=== PATIENT | female | born 1930 | race Hispanic/Latino ===

== ENCOUNTER 2017-10-02 06:26 | Emergency (ER) | payer MEDICARE, OTHER ==
[2017-10-02 06:26] VITALS: BMI 24.6
--- NOTE | 2017-10-02 07:20 | ED PDOC ---
Arrival/HPI - General Chief Complaint: Lower Extremity Problem/Injury Time Seen by Provider: 10/02/17 07:15 Historian: Patient - History of Present Illness Narrative History of Present Illness (Text): 10/02/17 07:10 Mer Cotto is an 87 year old female, whose past medical history includes hypertension and arthritis, who presents to the emergency department accompanied by family, complaining of left sided hip pain s/p mechanical fall prior to arrival. Patient reports as she was going up her driving she slipped landing on her left side. She was able to get up and ambulate again, but then fell again. Patient did not hit her head or lose consciousness. Patient denies nausea, vomiting, vision changes, headache, chest pain, shortness of breath or other complaints. Additionally, patient notes taking 2 Advil's this morning for her arthritis. PMD: Dr. Mann Time/Duration: Prior to Arrival Symptom Onset: Sudden Symptom Course: Unchanged Activities at Onset: Light Context: Walking, Street, Slipped Past Medical History - Provider Review Nursing Documentation Reviewed: Yes - Infectious Disease Hx of Infectious Diseases: None - Tetanus Immunization Tetanus Immunization: Unknown - Cardiac Hx Hypertension: Yes - Pulmonary Hx Respiratory Disorders: No - Neurological Hx Neurological Disorder: No - HEENT Other/Comment: bilat hearing aid - Endocrine/Metabolic Hx Endocrine Disorders: No - Hematological/Oncological Hx Blood Disorders: No - Integumentary Hx Dermatological Disorder: No - Musculoskeletal/Rheumatological Hx Arthritis: Yes - Gastrointestinal Hx Gastrointestinal Disorders: No - Genitourinary/Gynecological Hx Reproductive Disorders: No - Psychiatric Hx Depression: No Hx Emotional Abuse: No Hx Physical Abuse: No Hx Substance Use: No - Surgical History Hx Cholecystectomy: Yes Hx Hysterectomy: Yes - Anesthesia Hx Anesthesia Reactions: No Hx Malignant Hyperthermia: No - Suicidal Assessment Feels Threatened In Home Enviroment: No Family/Social History - Physician Review Nursing Documentation Reviewed: Yes Family/Social History: Unknown Family HX Smoking Status: Never Smoked Hx Alcohol Use: No Hx Substance Use: No Hx Substance Use Treatment: No Allergies/Home Meds Allergies/Adverse Reactions: Allergies nifedipine Allergy (Verified 10/02/17 07:17) DIZZINESS nitrofurantoin Allergy (Verified 10/02/17 07:17) RASH Home Medications: Home Meds Medication Instructions Recorded Confirmed No Known Home Med 10/02/17 10/02/17 Review of Systems - Review of Systems Constitutional: absent: Fevers Eyes: absent: Vision Changes Respiratory: absent: SOB Cardiovascular: absent: Chest Pain Gastrointestinal: absent: Nausea, Vomiting Genitourinary Female: absent: Dysuria Musculoskeletal: Other (left sided hip pain ). absent: Back Pain Neurological: absent: Headache, Dizziness Hemo/Lymphatic: absent: Easy Bleeding Physical Exam Vital Signs Reviewed: Yes Vital Signs Temp Pulse Resp BP Pulse Ox 10/02/17 09:36 97.8 F 82 19 165/86 H 100 10/02/17 06:44 97.6 F 68 16 170/90 H 99 10/02/17 06:26 97.6 F 80 19 160/86 H 100 Temperature: Afebrile Blood Pressure: Hypertensive Pulse: Regular Respiratory Rate: Normal Appearance: Positive for: Well-Appearing, Non-Toxic, Comfortable Pain Distress: None Mental Status: Positive for: Alert and Oriented X 3 - Systems Exam Head: Present: Atraumatic, Normocephalic Pupils: Present: PERRL Extroacular Muscles: Present: EOMI Conjunctiva: Present: Normal Neck: Present: Normal Range of Motion Respiratory/Chest: Present: Clear to Auscultation, Good Air Exchange. No: Respiratory Distress, Accessory Muscle Use, Wheezes, Rales, Rhonchi Cardiovascular: Present: Regular Rate and Rhythm, Normal S1, S2. No: Murmurs Upper Extremity: Present: Normal Inspection, Normal ROM, NORMAL PULSES, Neurovascularly Intact. No: Cyanosis, Edema, Tenderness, Swelling Lower Extremity: Present: Normal Inspection, NORMAL PULSES, Normal ROM, Neurovascularly Intact, Capillary Refill < 2 s, Other ((-) no hip tenderness). No: Edema, Tenderness, Swelling, Erythema, Deformity Neurological: Present: GCS=15, CN II-XII Intact, Speech Normal Skin: Present: Warm, Dry, Normal Color. No: Rashes Psychiatric: Present: Alert, Oriented x 3, Normal Insight, Normal Concentration Medical Decision Making ED Course and Treatment: 10/02/17 Impression: 87 year old female with left sided hip pain. No tenderness on exam and NROM. Differential Diagnosis included but are not limited to: sprain vs. fracture Plan: -- Left Hip x-ray -- Reassess and disposition Progress Notes: 10/02/17 09:15 Left Hip x-ray: Creator : Herb Hawkins MD FINDINGS: BONES: Normal. No fracture. JOINTS: Normal. SOFT TISSUES: Normal. OTHER FINDINGS: None. IMPRESSION: No evidence of fracture - RAD Interpretation Radiology Orders: 10/02/17 07:21 Hip Left [HIP MIN 2V W/ PELVIS LT] [RAD] Stat Statistics Teacher: Radiologist - Scribe Statement The provider has reviewed the documentation as recorded by the Scribe Heena Latrice Provider Scribe Attestation: All medical record entries made by the Scribe were at my direction and personally dictated by me. I have reviewed the chart and agree that the record accurately reflects my personal performance of the history, physical exam, medical decision making, and the department course for this patient. I have also personally directed, reviewed, and agree with the discharge instructions and disposition. Disposition/Present on Arrival - Present on Arrival Any Indicators Present on Arrival: No History of DVT/PE: No History of Uncontrolled Diabetes: No Urinary Catheter: No History of Decub. Ulcer: No History Surgical Site Infection Following: None - Disposition Have Diagnosis and Disposition been Completed?: Yes Diagnosis: Contusion, hip Disposition: HOME/ ROUTINE Disposition Time: 08:00 Condition: GOOD Discharge Instructions (ExitCare): RICE Therapy (ED), Hip Contusion (ED) Additional Instructions: Thank you for letting us take care of you today. The emergency medical care you received today was directed at your acute symptoms. If you were prescribed any medication, please fill it and take as directed. It may take several days for your symptoms to resolve. Return to the Emergency Department if your symptoms worsen, do not improve, or if you have any other problems. Please contact your doctor or call one of the physicians/clinics you have been referred to that are listed on the Patient Visit Information form that is included in your discharge packet. Bring any paperwork you were given at discharge with you along with any medications you are taking to your follow up visit. Our treatment cannot replace ongoing medical care by a primary care provider (PCP) outside of the emergency department. Thank you for allowing the [facility] team to be part of your care today. Follow up with your doctor in 3-4 days for re-evaluation and further management. Referrals: Jay Flowers MD [Primary Care Provider] - Follow up with primary Forms: [employer] ([place])
--- NOTE | 2017-10-02 09:13 | RAD ---
PROCEDURE: Left Hip and pelvis X-ray Radiographs. HISTORY: s/p fall r/o fx COMPARISON: None. FINDINGS: BONES: Normal. No fracture. JOINTS: Normal. SOFT TISSUES: Normal. OTHER FINDINGS: None. IMPRESSION: No evidence of fracture
[2017-10-02 09:37] VITALS: BP 165/86; PULSE 82; RESP 19; TEMP 97.8; O2SAT 100
== END 2017-10-02 09:36 | disposition home or self-care (01) ==
LOC: ED 06:26
DX: S70.02XA Contusion of left hip, initial encounter (principal); W01.0XXA Fall on same level from slipping, tripping and stumbling without subsequent striking against object, initial encounter; Y92.89 Other specified places as the place of occurrence of the external cause

== ENCOUNTER 2017-10-23 07:06 | Inpatient (IN) | payer MEDICARE, OTHER ==
[2017-10-23 07:18] VITALS: BMI 24.7
--- NOTE | 2017-10-23 07:26 | ED PDOC ---
Arrival/HPI - General Time Seen by Provider: 10/23/17 07:09 Historian: Patient - History of Present Illness Narrative History of Present Illness (Text): 10/23/17 07:15 A 87 year old female, whose past medical history includes hypertension and arthritis, presents to the emergency department complaining of left side hip and thigh pain s/p mechanical fall. Patient reports she was on her way to the store when legs gave out and slipped backwards. States injuring left side. Also , patient mentions having similar episodes few weeks ago. Patient denies any dizziness prior to fall, any LOC, head trauma, knee pain, ankle pain, arm pain, or any other complaints. Currently is refusing to take any pain medications. PMD: Dr. Jay Flowers Time/Duration: Prior to Arrival Symptom Onset: Sudden Symptom Course: Unchanged Past Medical History - Provider Review Nursing Documentation Reviewed: Yes - Infectious Disease Hx of Infectious Diseases: None - Tetanus Immunization Tetanus Immunization: Unknown - Reproductive Currently : No - Cardiac Hx Hypertension: Yes - Pulmonary Hx Respiratory Disorders: No - Neurological Hx Neurological Disorder: No - HEENT Other/Comment: bilat hearing aid - Endocrine/Metabolic Hx Endocrine Disorders: No - Hematological/Oncological Hx Blood Disorders: No - Integumentary Hx Dermatological Disorder: No - Musculoskeletal/Rheumatological Hx Arthritis: Yes - Gastrointestinal Hx Gastrointestinal Disorders: No - Genitourinary/Gynecological Hx Reproductive Disorders: No - Psychiatric Hx Depression: No Hx Emotional Abuse: No Hx Physical Abuse: No Hx Substance Use: No - Surgical History Hx Cholecystectomy: Yes Hx Hysterectomy: Yes - Anesthesia Hx Anesthesia Reactions: No Hx Malignant Hyperthermia: No - Suicidal Assessment Feels Threatened In Home Enviroment: No Family/Social History - Physician Review Nursing Documentation Reviewed: Yes Family/Social History: No Known Family HX Smoking Status: Never Smoked Hx Alcohol Use: No Hx Substance Use: No Hx Substance Use Treatment: No Allergies/Home Meds Allergies/Adverse Reactions: Allergies nifedipine Allergy (Verified 10/23/17 11:37) DIZZINESS nitrofurantoin Allergy (Verified 10/23/17 11:37) RASH Home Medications: Home Meds Medication Instructions Recorded Confirmed Diltiazem HCl [Diltiazem ER] 180 mg PO DAILY 10/23/17 10/23/17 Esomeprazole Magnesium [Nexium] 40 mg PO DAILY 10/23/17 10/23/17 Lisinopril [Zestril] 10 mg PO DAILY 10/23/17 10/23/17 Tramadol HCl [Ultram] 50 mg PO DAILY 10/23/17 10/23/17 Travoprost [Travatan Z] 1 drop OU HS 10/23/17 10/23/17 Review of Systems - Physician Review All systems were reviewed & negative as marked: Yes - Review of Systems Constitutional: absent: Other (no head trauma) Musculoskeletal: Other (left hip and thigh pain; denies of any knee pain, ankle pain, or arm pain) Neurological: absent: Dizziness (no dizziness prior to fall), Other (no LOC) Physical Exam Vital Signs Reviewed: Yes Vital Signs Temp Pulse Resp BP Pulse Ox 10/23/17 11:00 87 18 168/86 H 95 10/23/17 07:20 97.6 F 84 16 186/95 H 97 Temperature: Afebrile Blood Pressure: Hypertensive Pulse: Regular Respiratory Rate: Normal Appearance: Positive for: Well-Appearing Pain Distress: None Mental Status: Positive for: Alert and Oriented X 3 - Systems Exam Head: Present: Atraumatic, Normocephalic Pupils: Present: PERRL Extroacular Muscles: Present: EOMI Conjunctiva: Present: Normal Mouth: Present: Moist Mucous Membranes Neck: Present: Normal Range of Motion Respiratory/Chest: Present: Clear to Auscultation, Good Air Exchange. No: Respiratory Distress, Accessory Muscle Use Cardiovascular: Present: Regular Rate and Rhythm, Normal S1, S2. No: Murmurs Abdomen: Present: Normal Bowel Sounds. No: Tenderness, Distention, Peritoneal Signs Back: Present: Normal Inspection Upper Extremity: Present: Normal Inspection. No: Cyanosis, Edema Lower Extremity: Present: Tenderness (mild left hip tenderness) Neurological: Present: GCS=15, CN II-XII Intact, Speech Normal Skin: Present: Warm, Dry, Normal Color. No: Rashes Psychiatric: Present: Alert, Oriented x 3, Normal Insight, Normal Concentration Medical Decision Making ED Course and Treatment: 10/23/17 07:19 Impression: 87 year old female with left hip and thigh pain s/p mechanical fall. Physical exam shows mild left hip tenderness. Plan: -- Left Femur X-Ray -- Hip/Pelvis X-Ray -- Hip CT -- Labs -- Reassess and disposition Prior Visits: Notes and results from previous visits were reviewed. Patient was last seen in the emergency department on 10/02/2017 for left sided hip pain s/p mechanical fall. Patient was d/c home. Patient eloped. Progress Notes: 10/23/2017 08:11 Femur X-Ray FINDINGS: Mottled lucency concerning for a left femoral greater trochanteric fracture noted. No dislocation. Osteopenia. Bilateral hemipelvic phleboliths. Stool retention. Superolateral acetabular spurring. IMPRESSION: Comminuted left greater trochanteric fracture suspect-findings discussed with me 10/23/2017 at 08:05. Dictator: Yeison Rodriguez MD 10/23/2017 08:26 Hip/Pelvis X-Ray FINDINGS: Comminuted rack sure greater trochanter suspect. Superolateral hip joint space narrowing-superior acetabular spurring. Inferior acetabluar mild osseous hypertrophy. Generalized background osteopenia. IMPRESSION: Greater trochantric left femoral fracture - findings discussed with me 10/23/2017 at 08:05. Dictator: Valencia Rodriguez MD 10/23/2017 08:[address] FINDINGS: Since the prior CT, interval nereida comminuted trochanteric left femoral fracture has developed. The major fracture fragments are 5 mm para coronal series series 601, image 40. Superolateral hip joint space narrowing with minimal superolateral acetabular spurring no femoral head or neck fractures noted. Portion of the pelvis suggests redundancy -- rectosigmoid colon with extensive stool retention here. Bilateral arterial vascular calcifications noted. Minimal subcutaneous reticulated edema at the posterior femoral trochlear fracture site. IMPRESSION: Comminuted left femoral trochanteric fracture with separation of major fracture fragments 5 mm. No femoral head or neck fractures. Dictator: Valencia Rodriguez MD 10/23/17 09:05 Case discussed with PMD. 10/23/2017 09:[address] Liu, whom will see patient in the ER. EKG: Ordered, reviewed, and independently interpreted the EKG. Rate : 80 BPM Rhythm : Sinus rhythm with 1st AV block Interpretation : No ST-segment elevations or depressions, no T-wave inversions, normal intervals. Comparison : No previous EKG for comparison. 10/23/17 09:47 Hemoglobin stable from previous. Patient has been seen by Dr. Liu, whom requests MRI to rule out stress fracture. Patient refuses agnosia in ER. - Lab Interpretations Lab Results: 10/23/17 09:20 10/23/17 09:20 Lab Results 10/23/17 09:30: Blood Type Confirm O NEGATIVE 10/23/17 09:20: Blood Type O NEGATIVE, Antibody Screen Positive, Antibody Identification Anti D, Antigen Identification C Antigen - NEGATIVE, BBK History Checked No verified bt 10/23/17 09:20: Sodium 141, Potassium 3.5 L, Chloride 106, Carbon Dioxide 25, Anion Gap 13, BUN 13, Creatinine 0.8, Est GFR ( Amer) > 60, Est GFR (Non- Af Amer) > 60, Random Glucose 97, Calcium 9.6, Total Bilirubin 0.5, AST 39 H, ALT 34, Alkaline Phosphatase 179 H, Total Protein 7.2, Albumin 3.9, Globulin 3.2 , Albumin/Globulin Ratio 1.2 10/23/17 09:20: PT 12.2, INR 1.11 H, APTT 27.5 10/23/17 09:20: WBC 5.2 D, RBC 4.01, Hgb 10.1 L, Hct 32.3 L, MCV 80.5, MCH 25.2 , MCHC 31.3, RDW 16.8 H, Plt Count 185, MPV 9.2, Gran % 76.6 H, Lymph % (Auto) 13.4 L, [place] % (Auto) 9.0 H, Eos % (Auto) 0.8 L, Baso % (Auto) 0.2, Gran # 4.00 , Lymph # 0.7 L, [place] # 0.5, Eos # 0.0, Baso # 0.01 I have reviewed the lab results: Yes - RAD Interpretation Radiology Orders: 10/23/17 07:19 Femur Left [FEMUR MIN 2 VIEWS LT] [RAD] Stat HIP MIN 4V W/ PELVIS LT [RAD] Stat 10/23/17 08:12 HIP WITHOUT CONTRAST LEFT [CT] Stat 10/23/17 09:48 HIP W/O CONTRAST LEFT [MRI] Stat - Scribe Statement The provider has reviewed the documentation as recorded by the Gonzales Gamboa Provider Scribe Attestation: All medical record entries made by the Scribe were at my direction and personally dictated by me. I have reviewed the chart and agree that the record accurately reflects my personal performance of the history, physical exam, medical decision making, and the department course for this patient. I have also personally directed, reviewed, and agree with the discharge instructions and disposition. Disposition/Present on Arrival - Present on Arrival Any Indicators Present on Arrival: No History of DVT/PE: No History of Uncontrolled Diabetes: No Urinary Catheter: No History Surgical Site Infection Following: None - Disposition Have Diagnosis and Disposition been Completed?: Yes Diagnosis: Fall, Hip fracture Disposition: HOME/ ROUTINE Disposition Time: 10:00 Patient Problems: Current Active Problems Problem Status Onset Fall Acute Hip fracture Acute Condition: STABLE
--- NOTE | 2017-10-23 08:12 | RAD ---
PROCEDURE: HISTORY: fall COMPARISON: 10/23/2017 0748 hours TECHNIQUE: AP view of the pelvis and applicable frog leg views obtained. FINDINGS: Mottled lucency concerning for a left femoral greater trochanteric fracture noted No dislocation. Osteopenia. Bilateral hemipelvic phleboliths. Stool retention. Superolateral acetabular spurring IMPRESSION: Comminuted left greater trochanteric fracture fracture suspect - findings discussed with ER physician, Dr. Nice 10/23/2017 at 8:05 a.m.
--- NOTE | 2017-10-23 08:28 | RAD ---
PROCEDURE: HISTORY: fall COMPARISON: 10/02/2017 TECHNIQUE: AP view of the pelvis and applicable frog leg views obtained. FINDINGS: Comminuted rack sure greater trochanter suspect. Superolateral hip joint space narrowing -superior acetabular spurring. Inferior acetabular mild osseous hypertrophy Generalized background osteopenia IMPRESSION: Greater trochanteric left femoral fracture - findings discussed with ER physician, Dr. Nice 10/23/2017 at 8:05 a.m.
--- NOTE | 2017-10-23 08:57 | CT ---
PROCEDURE: HISTORY: fall r/o fracture COMPARISON: Left hip radiograph 10/23/2017. Abdomen and pelvis CT 05/16/2017 TECHNIQUE: Contrast dose: None Radiation dose: Total exam DLP = 190 mGy-cm. This CT exam was performed using one or more of the following dose reduction techniques: Automated exposure control, adjustment of the mA and/or kV according to patient size, and/or use of iterative reconstruction technique. FINDINGS: Since the prior CT, interval mildly comminuted trochanteric left femoral fracture has developed. The major fracture fragments are 5 mm para coronal series 601, image 40. Superolateral hip joint space narrowing with minimal superolateral acetabular spurring no femoral head or neck fractures noted. Portions of the pelvis suggests redundancy- - rectosigmoid colon with extensive stool retention here. Bilateral arterial vascular calcifications noted Minimal subcutaneous reticulated edema at the posterior femoral trochlear fracture site IMPRESSION: Comminuted left femoral trochanteric fracture with separation of major fracture fragments 5 mm. No femoral head or neck fractures
[2017-10-23 09:33] LABS: BASO # 0.01 K/mm3 (0.0-2.0); BASO % 0.2 % (0.0-3.0); EOS % 0.8 % (1.5-5.0); GRAN % 76.6 % (50.0-68.0); HEMATOCRIT 32.3 % (36.0-48.0); LYMPH # 0.7 (1.2-3.4); LYMPH % 13.4 % (22.0-35.0); MEAN CELL VOLUME 80.5 fl (80.0-105.0); MEAN CORPUSCULAR HEMOGLOBIN 25.2 pg (25.0-35.0); MEAN CORPUSCULAR HGB CONC 31.3 g/dl (31.0-37.0); MEAN PLATELET VOLUME 9.2 fl (7.0-11.0); MONO # 0.5 (0.1-0.6); RED CELL DISTRIBUTION WIDTH 16.8 % (11.5-14.5); WHITE BLOOD COUNT 5.2 10^3/ul (4.5-11.0)
[2017-10-23 09:41] LABS: ALB/GLOB RATIO 1.2 (1.1-1.8); ALKALINE PHOSPHATASE 179 U/L (38-126); ALT/SGPT 34 U/L (7-56); AST/SGOT 39 U/L (14-36); BILIRUBIN,TOTAL 0.5 mg/dL (0.2-1.3); BLOOD UREA NITROGEN 13 mg/dL (7-21); CALCIUM 9.6 mg/dL (8.4-10.5); CARBON DIOXIDE 25 mmol/L (21-33); CHLORIDE 106 mmol/L (98-107); GFR AFRICAN-AMERICAN > 60; GLUCOSE,RANDOM 97 mg/dL (70-110); INR 1.11 (0.93-1.08); PARTIAL THROMBOPLASTIN TIME 27.5 Seconds (25.1-36.5); POTASSIUM 3.5 mmol/L (3.6-5.0); SODIUM 141 mmol/L (132-148); TOTAL PROTEIN 7.2 g/dL (5.8-8.3)
[2017-10-23 11:04] VITALS: RESP 18
--- NOTE | 2017-10-23 12:13 | MRI ---
PROCEDURE: MRI of the left hip without contrast HISTORY: r/o stress fracture COMPARISON: CT of the hip 10/23/2017 TECHNIQUE: MRI of the left hip was performed in multiple planes using multiple pulse sequences FINDINGS: As seen on the CT scan there is a displaced fracture through the greater trochanter transversely with a small amount of separation. There is extensive marrow edema in the proximal femur. There is a fracture line that extends into the intertrochanteric region. This does not completely extend to the medial side. This finding is seen on image 14 series 4. There is a large amount of soft tissue edema adjacent to the left hip. IMPRESSION: Displaced fracture of the greater trochanter. There is a fracture line in the intertrochanteric region the does not completely extend to the medial side.
[2017-10-23] MEDS ORDERED: Pneumococcal 23-Valent Vaccine IM ONE (13:42)
[2017-10-23] MEDS ORDERED: Influenza Vaccine 60 mcg/0.5 mL SYR (4YR UP) IM ONE (13:42)
[2017-10-23] MEDS ORDERED: Potassium Chloride 20 mEq ER Tab PO ONE (17:07)
--- NOTE | 2017-10-23 19:37 | PN ---
DATE: 10/23/2017 UPDATE REPORT LOCATION: Room 578, bed 1. SUBJECTIVE: The patient was admitted for left hip fracture to the great trochanter. MRI shows that the fracture does not appear to be involving the calcar area of the left hip and she can do her straight raise and she even walk to the bathroom. So I feel as though, as long as she has well protected home environment, she can go home, where she wants to with extreme precautions of no lifting, no stairs, no house work, and she has to walk with a walker and to use a commode, which she has already at home and to avoid falls at all cause and I have told her that if she continues this way for 6 weeks, should heal enough where she will not need surgery, but if there is any inadvertent fall or twisting she may fracture that calcar area and then would require surgery, but the MRI does not show bone edema around the calcar of the left hip, so we will allow her to do therapy with a walker, partial weightbearing on the left hip and hopefully can go home in a day or 2. I will talk to Dr. Flowers to tell her that and I will follow her in the outpatient environment after a couple of weeks. Herb Rosales DO
--- NOTE | 2017-10-24 03:11 | CON ---
DATE: 10/23/2017 CONSULTING SERVICE: Cardiology. REASON FOR CONSULTATION: Preop evaluation, risk stratification for possible hip surgery. BRIEF CLINICAL HISTORY: This is an 87-year-old female with past medical history significant for hypertension for many years, on antihypertensive medication, who fell down and sustained fracture of left hip, possible requiring OR internal fixation. PAST MEDICAL HISTORY: Significant for hypertension. Denies any documented history of coronary artery disease. Denies any history of chest pain, shortness of breath or any palpitation. SOCIAL HISTORY: Never smoked. No history of alcohol abuse. PAST SURGICAL HISTORY: History significant for hysterectomy. CURRENT MEDICATIONS: The patient is taking tramadol, Zestril 10 mg daily and Cardizem CD 120 mg daily. ALLERGIES: TO NIFEDIPINE AND NITROFURANTOIN. PREVIOUS CARDIAC WORKUP: The patient nothing in the systems available. EKG reveals normal sinus rhythm with AV block. No acute ST-T changes noted. Heart rate of 80. No change in the EKG from 2015. REVIEW OF SYSTEMS: As per HPI. PHYSICAL EXAMINATION: As follows: VITAL SIGNS: Temperature afebrile, heart rate 98, and blood pressure 160/85. HEENT: PERRLA intact. NECK: Supple. No carotid bruits or thyromegaly. CHEST: Clear to auscultation. HEART: S1 and S2 regular. ABDOMEN: Soft. EXTREMITIES: Clubbing and cyanosis negative. LABORATORY DATA: Blood workup as follows: WBC 5.8, hemoglobin 10, hematocrit 32.3, and platelet count 185. Chemistry showed sodium 141, potassium 3.5, chloride 106, carbon dioxide 25, anion gap of 13, BUN 13, creatinine of 0.8. AST 49, ALT 34. Alkaline phosphatase is 179. INR 1.1. PT 12.2, PTT 27.5. MRI of the hip shows displaced fracture of the greater trochanter. IMPRESSION: An 87-year-old female with past medical history of hypertension, status post fall leading to mechanical fracture of the left hip displaced, possible requiring open reduction and internal fixation. As per Dr. Rosales, we are clearly looking forward to a surgery. The patient has had no definite history of documented coronary artery disease, no history of angina, arrhythmia. EKG normal sinus, first degree AV block, since unchanged from 2015. If the patient needs to go to the OR, we will tell the patient to go with moderate if underlying comorbidity, but no absolute contraindication. As mentioned, no history of angina, no history arrhythmia, no history of congestive heart failure. We will get echo to assess left ventricular function,rule out any aortic stenosis. Continue Cardizem for now. Continue medications, the patient was at home is lisinopril. We will give one dose of lisinopril as STAT because of elevated blood pressure. We will get echo, lipid profile, TSH, hemoglobin A1c. We will supplement potassium also because no documentation for supplementation of potassium noted in the ER. The patient has K 3.5. We will give 40 K-Dur now. We will follow with you. Thank you, Dr. Rosales as well as Dr. Flowers, for providing me the opportunity in taking care of the patient, Mer Cotto. Constantin Saxena MD cc: MD Herb Carson DO Thomas Suczewski, MD
[2017-10-24 07:00] LABS: EOS # 0.1 (0.0-0.7); EOS % 1.7 % (1.5-5.0); GRAN # 2.89 (1.4-6.5); GRAN % 71.1 % (50.0-68.0); HEMATOCRIT 33.2 % (36.0-48.0); LYMPH # 0.7 (1.2-3.4); LYMPH % 17.9 % (22.0-35.0); MEAN CELL VOLUME 79.8 fl (80.0-105.0); MEAN CORPUSCULAR HGB CONC 31.3 g/dl (31.0-37.0); MEAN PLATELET VOLUME 9.2 fl (7.0-11.0); MONO # 0.4 (0.1-0.6); MONO % 9.3 % (1.0-6.0); RED CELL DISTRIBUTION WIDTH 16.9 % (11.5-14.5); WHITE BLOOD COUNT 4.1 10^3/ul (4.5-11.0)
[2017-10-24 07:22] LABS: ALB/GLOB RATIO 1.2 (1.1-1.8); ALKALINE PHOSPHATASE 163 U/L (38-126); ALT/SGPT 24 U/L (7-56); AST/SGOT 36 U/L (14-36); BILIRUBIN,TOTAL 0.7 mg/dL (0.2-1.3); BLOOD UREA NITROGEN 11 mg/dL (7-21); CALCIUM 9.8 mg/dL (8.4-10.5); CARBON DIOXIDE 24 mmol/L (21-33); CHLORIDE 108 mmol/L (98-107); CHOLESTEROL 168 mg/dL (130-200); GFR AFRICAN-AMERICAN > 60; GLUCOSE,RANDOM 99 mg/dL (70-110); MAGNESIUM 1.9 mg/dL (1.7-2.2); PHOSPHOROUS 2.9 mg/dL (2.5-4.5); POTASSIUM 3.5 mmol/L (3.6-5.0); SODIUM 143 mmol/L (132-148); TOTAL PROTEIN 6.9 g/dL (5.8-8.3)
--- NOTE | 2017-10-24 08:24 | CON ---
ORTHOPEDIC CONSULTATION DATE: 10/23/2017 HISTORY OF PRESENT ILLNESS: The patient is an 87-year-old female came into the ER with complaints of left hip pain. X-ray showed comminuted greater trochanteric fracture of the left hip without extension into the calcar area of the left hip that would necessitate surgery. If the fracture is only limited to the greater trochanter, she does not need surgery, so we are going to order an MRI of the left hip to see if there is any stress fracture or an extension of the fracture into her left hip intertrochanteric area, which would be considered unstable and would need fixation with a pin. The good things that she could do a straight leg raising, internal rotation with minimal pain, but history is that she felt 3 weeks ago injured herself, she said worse than today and developing ecchymosis of the left knee, thigh, and calf, but after that fall 3 weeks ago, she walked home. She did okay and then she fell again today and tripped on the walker and now she fell and x-rays did show greater trochanteric fracture, but no involvement of the intertrochanteric region, so we are going to get a MRI to see if the fracture extends into the unstable part of her left hip. If that is the case, she would have to have surgical fixation to avoid by the fracture occurring and then falling with extensive blood loss and pain. So we are going to order an MRI of left hip and then hold off on getting out of bed until the MRI is negative for intertrochanteric fracture, but she could get out of bed if it is just a greater trochanteric fracture. I will follow her with you and she could eat today. Herb Rosales DO
[2017-10-24] MEDS ORDERED: Potassium Chloride 40 mEq/30 ml LIQ UD PO ONE (08:52)
[2017-10-24] MEDS ORDERED: DILTIAZEM HCL 180 MG PO SCH (10:00)
[2017-10-24] MEDS: diltiaZEM 180 mg/24 Hours CD Cap PO SCH (10:12)
--- NOTE | 2017-10-24 18:21 | CARD ---
APPROVED REPORT EXAM: Two-dimensional and M-mode echocardiogram with Doppler and color Doppler. INDICATION Pre-Op 2D DIMENSIONS IVSd1.2 (0.7-1.1cm)Aortic Root (2D)2.7 (2.0-3.7cm) LVDd3.0 (3.9-5.9cm)PWd1.2 (0.7-1.1cm) LVDs1.3 (2.5-4.0cm)FS (%) 55.2 % LVEF (%)87.0 (>50%) M-Mode DIMENSIONS Aortic Cusp Exc.1.40 (1.5-2.0cm) Aortic Valve AoV Peak Qvacrjkc108.0cm/Nelda Peak GR.5mmHg Mitral Valve MV E Rtjsnvoj35.0cm/sMV A Gnglckpc82.3cm/sE/A ratio0.8 TDI Lateral E' Peak V4.48cm/sMedial E' Peak V4.58cm/sE/Lateral E'16.7 E/Medial E'16.4 Pulmonary Valve PV Peak Tsouqlhf153.0cm/sPV Peak Grad.4mmHg Tricuspid Valve TR Peak Ktukpriw139oo/sRAP PQFLGVTK8klAaYK Peak Gr.22mmHg FRCG10xwWb LEFT VENTRICLE The left ventricle is normal size. There is mild concentric left ventricular hypertrophy. The left ventricle is hyperdynamic.EF-75% There is normal LV segmental wall motion. Transmitral Doppler flow pattern is Grade III-reversible restrictive diastolic dysfunction. No left ventricle thrombus noted on this study. There is no ventricular septal defect visualized. There is no left ventricular aneurysm. There is no mass noted in the left ventricle. RIGHT VENTRICLE The right ventricle is normal size. There is normal right ventricular wall thickness. The right ventricular systolic function is normal. ATRIA The left atrium size is normal. The right atrium size is normal. The interatrial septum is intact with no evidence for an atrial septal defect. AORTIC VALVE The aortic valve is thickened but opens well. No aortic regurgitation is present. There is no aortic valvular stenosis. There is no aortic valvular vegetation. MITRAL VALVE The mitral valve is thickened but opens well. Mitral annular calcification is moderate. Mitral regurgitation is trace. There is no mitral valve stenosis. There is no evidence of mitral valve prolapse. TRICUSPID VALVE The tricuspid valve leaflets are thickened , but open well. There is trace tricuspid regurgitation.RVSP_25 mmof hg. There is no tricuspid valve stenosis. There is no tricuspid valve prolapse or vegetation. PULMONIC VALVE The pulmonic valve is not well visualized, but probably normal. There is no pulmonic valvular regurgitation. GREAT VESSELS The aortic root is normal in size. The ascending aorta is normal in size. The pulmonary artery is normal. The IVC is normal in size and collapses >50% with inspiration. PERICARDIAL EFFUSION There is no pleural effusion. There is a small-moderate pericardial effusion. <Conclusion> Normal Chamber Size. Ef-75% trace MR/Tr RVSP-25 mmof Hg. The IVC is normal in size and collapses >50% with inspiration. There is a small-moderate pericardial effusion.
--- NOTE | 2017-10-24 19:28 | CARD ---
APPROVED REPORT EKG Measurement Heart [id number] <Conclusion> Sinus rhythm with 1st degree AV block with occasional APCs Otherwise normal ECG
--- NOTE | 2017-10-25 03:21 | PN ---
DATE: 10/24/2017 SUBJECTIVE: The patient was seen this evening in room 578, bed #1. She was seen and followed by Orthopedics, admitted yesterday. X-rays, CAT scan and MRI were done, showing hip fracture of the greater trochanter. I spoke with Dr. Rosales at length, he is concerned for her possibility of another fall and worse fracture in the area of the stress fracture noted on MRI. When I saw the patient this evening, she is walking in her room with pain. I told her about the importance of following the orthopedist's opinion, using a walker, she said she has a walker at home and is looking forward to discharge tomorrow. In carefully talking at greater length, she told me that before this episode as well as before some other episodes, she had short time of visual symptoms ranging from blurred vision to blindness. Therefore, we will get a sed rate, MRI of the brain and carotid ultrasound tomorrow. Pending those results, she may be ready for discharge home after this. Jay Flowers MD
[2017-10-25 07:57] LABS: ALB/GLOB RATIO 1.2 (1.1-1.8); ALKALINE PHOSPHATASE 150 U/L (38-126); ALT/SGPT 29 U/L (7-56); AST/SGOT 38 U/L (14-36); BILIRUBIN,TOTAL 0.5 mg/dL (0.2-1.3); BLOOD UREA NITROGEN 16 mg/dL (7-21); CALCIUM 9.8 mg/dL (8.4-10.5); CARBON DIOXIDE 24 mmol/L (21-33); CHLORIDE 109 mmol/L (98-107); GFR AFRICAN-AMERICAN > 60; GLUCOSE,RANDOM 104 mg/dL (70-110); POTASSIUM 3.8 mmol/L (3.6-5.0); SODIUM 142 mmol/L (132-148); TOTAL PROTEIN 6.7 g/dL (5.8-8.3)
--- NOTE | 2017-10-25 08:36 | PN ---
DATE: 10/24/2017 LOCATION: The patient is in room 578, bed 1. REASON FOR CONSULTATION: Hypertension, risk stratification for possible surgery. SUBJECTIVE: The patient is lying comfortably in bed without any chest pain, shortness of breath, or palpitation. PHYSICAL EXAMINATION VITAL SIGNS: Blood pressure 163/92, respirations 18, pulse 87, and temperature 97.6. HEENT: Head is normocephalic. Eyes; pupils are normal. Conjunctivae slightly pale. NECK: JVP is low. Carotids are equal. THORAX: AP diameter normal. LUNGS: Clear. CARDIOVASCULAR: S1 and S2. ABDOMEN: Soft and nontender. No organomegaly. EXTREMITIES: No clubbing. No cyanosis. LABORATORY DATA: WBC 4.1, hemoglobin 10.4, hematocrit 33.2, and platelets 206. Sodium 143, potassium 3.5, BUN 11, creatinine 0.8. Calcium, phosphorus, magnesium are normal. AST and ALT are normal. Total protein 6.9 and albumin 3.7. DIAGNOSES: 1. Hip fracture. 2. Hypertension. PLAN: The patient had an echo today. We will follow the report. In the meantime, the patient has been given potassium p.o. 40 today for hypokalemia. Also the patient got Cardizem CD 180 p.o. today. Lisinopril 10 mg has been started also today for high blood pressure. We will monitor blood pressure and follow with you. If her blood pressure is still high, we will adjust the medication. In the meantime, Dr. Herb Rosales, Orthopedic decided to treat the patient medically. Constantin Marquez MD
[2017-10-25] MEDS: diltiaZEM 180 mg/24 Hours CD Cap PO SCH (09:12)
[2017-10-25 09:18] VITALS: BP 149/89; PULSE 71
[2017-10-25 09:27] VITALS: TEMP 97.9; O2SAT 96
--- NOTE | 2017-10-25 13:02 | PN ---
DATE: 10/25/2017 LOCATION: The patient is in room 576, bed 1. REASON FOR CONSULTATION: Followup hypertension, risk stratification for possible surgery. SUBJECTIVE: The patient denies any chest pain, shortness of breath or palpitation. The patient is lying in bed comfortably. PHYSICAL EXAMINATION: VITAL SIGNS: Blood pressure 149/89, yesterday blood pressure was 126/84, respirations 18, pulse 71, and temperature 97.9. HEENT: Head is normocephalic. Eyes; pupils are normal. Conjunctivae slightly pale. NECK: JVP is low. Carotids are equal. THORAX: AP diameter normal. LUNGS: Clear. CARDIOVASCULAR: S1 and S2. ABDOMEN: Soft. No tenderness. No organomegaly. Bowel sounds normal. EXTREMITIES: No clubbing. No cyanosis. LABORATORY DATA: WBC 4.1, hemoglobin 10.4, hematocrit 33.2, and platelets 206. Sodium 142, potassium 3.8, yesterday potassium was 3.5 and the patient received extra potassium, so today potassium is normal, BUN 16, and creatinine 0.9. Calcium is normal. AST 38, ALT 29, and alkaline phosphatase 150. Total protein 6.7 and albumin 3.7. The patient had echocardiogram on 10/24/2017, which showed normal chamber size is normal, LV size normal. LV systolic function with LV ejection fraction 75%, trace mitral regurgitation, trace tricuspid regurgitation. DIAGNOSES: 1. Hip fracture. 2. Hypertension. PLAN: Dr. Herb Rosales, Orthopedic, decided to treat this fracture medically. The patient has been on Cardizem CD 180 daily and lisinopril 10 mg daily. We will also put the patient on Ecotrin 81 mg p.o. daily. Yesterday, blood pressure was 126/84, today is 149/89. We will monitor blood pressure. If it stays high, we will adjust the medication. We will follow with you. Constantin Marquez MD
--- NOTE | 2017-10-25 13:08 | MRI ---
PROCEDURE: MRI BRAIN WITHOUT CONTRAST HISTORY: vis sx, s/p sella tu COMPARISON: 04/12/2015. TECHNIQUE: Multiplanar, multisequence MR images of the brain were obtained without intravenous contrast enhancement. FINDINGS: HEMORRHAGE: None DWI: No evidence of an acute or early subacute infarction. BRAIN PARENCHYMA: No mass effect or edema. No interval change in atrophy and chronic white matter ischemic disease in the periventricular white matter and right frontal subcortical white matter. VENTRICLES: Unremarkable. No hydrocephalus. CRANIUM: Unremarkable. ORBITS: Grossly unremarkable. PARANASAL SINUSES/MASTOIDS: Clear VASCULAR SYSTEM: Skull base flow voids intact. OTHER FINDINGS: None. IMPRESSION: No interval change. No acute findings.
--- NOTE | 2017-10-25 19:33 | US ---
PROCEDURE: Bilateral carotid artery duplex ultrasound HISTORY: Carotid stenosis PHYSICIAN(S): Jeremiah Terry MD. TECHNIQUE: Duplex sonography and color-flow Doppler were used to evaluate the carotid bifurcations and limited segments of the vertebral arteries bilaterally. FINDINGS: There is mild smooth heterogeneous plaque noted at the carotid bifurcations bilaterally. The peak systolic velocity in the proximal right internal carotid artery is 89 cm/sec. This corresponds to a 20 to 39% proximal right ICA stenosis. Normal systolic velocities are noted in the proximal right external carotid artery. There is antegrade flow in the right vertebral artery. The peak systolic velocity in the proximal left internal carotid artery is 66 cm/sec. This corresponds to a 20 to 39% proximal left ICA stenosis. Normal systolic velocities are noted in the proximal left external carotid artery. There is antegrade flow in the left vertebral artery. IMPRESSION: 1. Bilateral 20-39% proximal ICA stenoses. 2. Antegrade flow in both vertebral arteries.
--- NOTE | 2017-10-27 21:02 | DS ---
HISTORY OF PRESENT ILLNESS: This is an 87-year-old woman, who I had known for many years, with a history of hypertension, reflux esophagitis, osteoarthritis and cough, who came to the emergency room after a fall at home and was found to have a hip fracture of the greater trochanter. She was admitted, seen by orthopedist, Dr. Herb Rosales. Hse was felt to NOT be a surgical candidate, but was cautioned regarding activities. She declined the opportunity to enroll in subacute rehab, preferring to go home and do physical therapy at home. She was cautioned by Dr. Herb Rosales to use a walker and not climb stairs. In speaking with the patient, she told me that this episode occurred instantly after sudden loss of vision. She does have a history of transsphenoidal hypophysectomy for pituitary adenoma; therefore, an MRI and carotid ultrasounds were ordered. The MRI was essentially unremarkable and carotid ultrasound reported only mild 20% to 40% bilateral plaque. With these results known, the patient was ready to discharge to home in [place]. She will follow up in the office in 1 week. FINAL DISCHARGE DIAGNOSIS: 1. Hip fracture of the greater trochanter of the left femur. PLAN: Resume home with prior medications. Follow up with Dr. Rosales in 1 to 2 weeks. Follow up with me in 1 to 2 weeks. Jay Flowers MD MTDD
== END 2017-10-25 18:28 | disposition home or self-care (01) | DRG 536 ==
LOC: ED 07:06 → ERH 09:51 → 5RSO 11:26
PROVIDERS: ADMIT Internal Medicine; ATTEND Internal Medicine
DX: S72.112A Displaced fracture of greater trochanter of left femur, initial encounter for closed fracture (principal); E87.6 Hypokalemia; H54.7 Unspecified visual loss; I10 Essential (primary) hypertension; I44.0 Atrioventricular block, first degree; W01.0XXA Fall on same level from slipping, tripping and stumbling without subsequent striking against object, initial encounter; K21.0 Gastro-esophageal reflux disease with esophagitis; M19.90 Unspecified osteoarthritis, unspecified site; Z91.81 History of falling; Y93.01 Activity, walking, marching and hiking; Y92.9 Unspecified place or not applicable; Z90.710 Acquired absence of both cervix and uterus; Z90.49 Acquired absence of other specified parts of digestive tract

== ENCOUNTER 2018-05-16 08:31 | Inpatient (IN) | payer MEDICARE, OTHER ==
--- NOTE | 2018-05-16 09:08 | ED PDOC ---
Arrival/HPI - General Chief Complaint: Shortness Of Breath Time Seen by Provider: 05/16/18 08:37 Historian: Patient - History of Present Illness Narrative History of Present Illness (Text): 05/16/18 09:00 88 year old female, whose PMH includes COPD and hypertension, who presents to the emergency department complaining of shortness of breath since one day ago. Patient reports when she does light work such as walking (with assistance), her symptoms begin and has difficulty breathing, associated with intermittent chest pain, and palpitations. Patient also notes seeing her PMD 4 days ago complaining of cough, fatigue, and feeling lightheadedness. Patient denies fever , nausea, vomiting, diarrhea, abdominal pain, chills, lower extremity swelling, or other complaints. PMD: Dr. Kolby Mann Time/Duration: 24 hours Symptom Onset: Sudden Symptom Course: Unchanged Context: Walking Past Medical History - Provider Review Nursing Documentation Reviewed: Yes - Infectious Disease Hx of Infectious Diseases: None - Tetanus Immunization Tetanus Immunization: Unknown - Cardiac Hx Hypertension: Yes - Pulmonary Hx Chronic Obstructive Pulmonary Disease (COPD): Yes - Neurological Hx Neurological Disorder: No - HEENT Other/Comment: bilat hearing aid - Renal Hx Renal Disorder: Yes (RENAL INSUFFICEINCY,) - Endocrine/Metabolic Hx Endocrine Disorders: No - Hematological/Oncological Hx Blood Disorders: No - Integumentary Hx Dermatological Disorder: No - Musculoskeletal/Rheumatological Hx Arthritis: Yes - Gastrointestinal Hx Gastrointestinal Disorders: No - Genitourinary/Gynecological Hx Reproductive Disorders: No - Psychiatric Hx Depression: No Hx Emotional Abuse: No Hx Physical Abuse: No Hx Substance Use: No - Surgical History Hx Cholecystectomy: Yes Hx Hysterectomy: Yes - Anesthesia Hx Anesthesia Reactions: No Hx Malignant Hyperthermia: No - Suicidal Assessment Feels Threatened In Home Enviroment: No Family/Social History - Physician Review Nursing Documentation Reviewed: Yes Family/Social History: Unknown Family HX Smoking Status: Never Smoked Hx Alcohol Use: No Hx Substance Use: No Hx Substance Use Treatment: No Allergies/Home Meds Allergies/Adverse Reactions: Allergies nifedipine Allergy (Verified 05/16/18 08:51) DIZZINESS nitrofurantoin Allergy (Verified 05/16/18 08:51) RASH Home Medications: Home Meds Medication Instructions Recorded Confirmed Unobtainable 05/16/18 05/16/18 Review of Systems - Review of Systems Constitutional: Fatigue. absent: Fevers Eyes: absent: Vision Changes ENT: absent: Sinus Congestion Respiratory: SOB, Cough Cardiovascular: Chest Pain, Palpitations Gastrointestinal: absent: Abdominal Pain, Vomiting Genitourinary Female: absent: Dysuria, Frequency Musculoskeletal: absent: Back Pain Skin: absent: Rash Neurological: Dizziness. absent: Headache Endocrine: absent: Diaphoresis Physical Exam Vital Signs Reviewed: Yes Vital Signs Temp Pulse Resp BP Pulse Ox 05/16/18 08:50 20 05/16/18 08:48 75 18 95 05/16/18 08:32 98.3 F 76 17 152/83 H 94 L Temperature: Afebrile Blood Pressure: Hypertensive Pulse: Regular Respiratory Rate: Normal Appearance: Positive for: Well-Appearing, Non-Toxic, Comfortable Pain Distress: None Mental Status: Positive for: Alert and Oriented X 3 - Systems Exam Head: Present: Atraumatic, Normocephalic Pupils: Present: PERRL Extroacular Muscles: Present: EOMI Conjunctiva: Present: Normal Mouth: Present: Moist Mucous Membranes Respiratory/Chest: Present: Clear to Auscultation, Good Air Exchange. No: Respiratory Distress, Accessory Muscle Use, Wheezes, Decreased Breath Sounds, Rales, Retracting, Rhonchi Cardiovascular: Present: Regular Rate and Rhythm, Normal S1, S2. No: Murmurs Abdomen: Present: Normal Bowel Sounds. No: Tenderness, Distention, Peritoneal Signs, Rebound, Guarding Lower Extremity: Present: Normal Inspection, NORMAL PULSES, Normal ROM, Neurovascularly Intact, Capillary Refill < 2 s. No: Edema, Cyanosis, Tenderness , Swelling, Erythema, Deformity Neurological: Present: GCS=15, CN II-XII Intact, Speech Normal Skin: Present: Warm, Dry, Normal Color. No: Rashes Psychiatric: Present: Alert, Oriented x 3, Normal Insight, Normal Concentration Medical Decision Making ED Course and Treatment: 05/16/18 Impression: 88 year old female with unremarkable physical exam complaining of shortness of breath, intermittent chest pain and palpitations. Differential Diagnosis included but are not limited to: CHF vs. ACS vs. bronchitis Plan: -- EKG -- Chest X-ray -- Labs -- Reassess and disposition Progress Notes: EKG: Ordered, reviewed, and independently interpreted the EKG. Rate : 74 BPM Rhythm : NSR Interpretation : 1st degree AV block. No ST-segment elevations or depressions, no T-wave inversions, normal intervals. 05/16/18 10:20 Chest X-ray: Creator : Jeremiah Hairston MD COMPARISON: 12/02/2015 FINDINGS: LUNGS: No active pulmonary disease. PLEURA: No significant pleural effusion identified, no pneumothorax apparent. CARDIOVASCULAR: Mild cardiomegaly. No congestive change. OSSEOUS STRUCTURES: No significant abnormalities. VISUALIZED UPPER ABDOMEN: Normal. OTHER FINDINGS: None. IMPRESSION: No active disease. 05/16/18 10:42 Patient with a recent diagnosis of pericardial effusion. She was supposed to have close follow up with cardiology but since new worsening symptoms of with chest pain, will need admission, echo and work up. i discussed the case with Dr. Kolby Flowers who provided me with this history and is recommended consults please with Dr. Black and Dr. Moran, Cardiology. - Lab Interpretations Lab Results: 05/16/18 08:52 05/16/18 08:52 Lab Results 05/16/18 08:52: Sodium 139, Potassium 3.4 L, Chloride 104, Carbon Dioxide 20 L, Anion Gap 17, BUN 8, Creatinine 0.7, Est GFR ( Amer) > 60, Est GFR (Non- Af Amer) > 60, Random Glucose 101, Calcium 9.3, Magnesium 1.7, Lactate Dehydrogenase 561, Total Creatine Kinase 73, Troponin I < 0.01, NT-Pro-B Natriuret Pep 504 H 05/16/18 08:52: WBC 4.2 L, RBC 4.19, Hgb 9.6 L, Hct 30.0 L, MCV 71.6 L D, MCH 22.9 L, MCHC 32.0, RDW 15.8 H, Plt Count 124, MPV 9.3, Gran % 69.1 H, Lymph % ( Auto) 18.5 L, Edgar % (Auto) 10.5 H, Eos % (Auto) 1.9, Baso % (Auto) 0.0, Gran # 2.91, Lymph # (Auto) 0.8 L, Edgar # (Auto) 0.4, Eos # (Auto) 0.1, Baso # (Auto) 0.00 I have reviewed the lab results: Yes - RAD Interpretation Radiology Orders: 05/16/18 08:53 CHEST PORTABLE [RAD] Stat Joint Runner: Radiologist - EKG Interpretation Interpreted by ED Physician: Yes Type: 12 lead EKG - Medication Orders Current Medication Orders: Discontinued Medications Potassium Chloride (K-Dur 20 Meq Er Tab) 40 meq PO STAT STA Stop: 05/16/18 09:43 Last Admin: 05/16/18 09:57 Dose: Not Given Non-Admin Reason: Patient Refused Potassium Chloride (Potassium Chloride Oral Soln) 40 meq PO STAT STA Stop: 05/16/18 10:15 Last Admin: 05/16/18 10:23 Dose: 40 meq - Scribe Statement The provider has reviewed the documentation as recorded by the Gonzales Pollard Provider Scribe Attestation: All medical record entries made by the Scribe were at my direction and personally dictated by me. I have reviewed the chart and agree that the record accurately reflects my personal performance of the history, physical exam, medical decision making, and the department course for this patient. I have also personally directed, reviewed, and agree with the discharge instructions and disposition. Disposition/Present on Arrival - Present on Arrival Any Indicators Present on Arrival: No History of DVT/PE: No History of Uncontrolled Diabetes: No Urinary Catheter: No History of Decub. Ulcer: No History Surgical Site Infection Following: None - Disposition Have Diagnosis and Disposition been Completed?: Yes Diagnosis: Dyspnea on exertion, Chest pain Disposition: HOSPITALIZED Disposition Time: 10:45 Patient Plan: Admission Condition: FAIR Discharge Instructions (ExitCare): Chest Pain (ED) Referrals: Jay Flowers MD [Primary Care Provider] - Follow up with primary Forms: [employer] ([place])
[2018-05-16 09:21] LABS: EOS # 0.1 (0.0-0.7); EOS % 1.9 % (1.5-5.0); GRAN # 2.91 (1.4-6.5); GRAN % 69.1 % (50.0-68.0); HEMOGLOBIN 9.6 g/dL (12.0-16.0); LYMPH # 0.8 (1.2-3.4); LYMPH % 18.5 % (22.0-35.0); MEAN CELL VOLUME 71.6 fl (80.0-105.0); MEAN CORPUSCULAR HEMOGLOBIN 22.9 pg (25.0-35.0); MEAN PLATELET VOLUME 9.3 fl (7.0-11.0); MONO # 0.4 (0.1-0.6); MONO % 10.5 % (1.0-6.0); RBC 4.19 10^6/uL (3.5-6.1); RED CELL DISTRIBUTION WIDTH 15.8 % (11.5-14.5); WHITE BLOOD COUNT 4.2 10^3/ul (4.5-11.0)
[2018-05-16 09:40] LABS: BLOOD UREA NITROGEN 8 mg/dL (7-21); CALCIUM 9.3 mg/dL (8.4-10.5); GFR AFRICAN-AMERICAN > 60; GFR NON-AFRICAN AMERICAN > 60
[2018-05-16] MEDS ORDERED: Potassium Chloride 20 mEq ER Tab PO STA (09:42)
[2018-05-16 09:47] LABS: B-TYPE NATRIURETIC PEPTIDE 504 pg/mL (0-450); TROPONIN I < 0.01 ng/mL
[2018-05-16] MEDS ORDERED: Potassium Chloride 40 mEq/30 ml LIQ UD PO STA (10:14)
--- NOTE | 2018-05-16 10:20 | RAD ---
HISTORY: sob COMPARISON: 12/02/2015 FINDINGS: LUNGS: No active pulmonary disease. PLEURA: No significant pleural effusion identified, no pneumothorax apparent. CARDIOVASCULAR: Mild cardiomegaly. No congestive change. OSSEOUS STRUCTURES: No significant abnormalities. VISUALIZED UPPER ABDOMEN: Normal. OTHER FINDINGS: None. IMPRESSION: No active disease.
[2018-05-16] MEDS ORDERED: Albuterol-Ipratrop 3 mg / 0.5 (3 ml) UD IH PRN (11:08)
[2018-05-16] MEDS ORDERED: levoFLOXacin 500 MG TAB PO STA (11:14)
[2018-05-16] MEDS ORDERED: levoFLOXacin 500 MG TAB PO SCH (11:15)
[2018-05-16] MEDS: MethylPREDNISolone 40 mg Vial IVP SCH ×2 (11:39→22:32)
[2018-05-16 12:53] VITALS: BMI 20.8
[2018-05-16] MEDS ORDERED: Pneumococcal 23-Valent Vaccine IM ONE (12:53)
[2018-05-16] MEDS ORDERED: guaiFENesin-Codeine 100-10mg/5ml Syrup (5 ml) UD PO SCH (18:00)
--- NOTE | 2018-05-16 18:11 | CON ---
DATE: 05/16/2018 PULMONARY CONSULTATION REASON FOR CONSULTATION: Chronic obstructive pulmonary disease. REFERRING PHYSICIAN: Jay Flowers MD HISTORY OF PRESENT ILLNESS: The patient is an 88-year-old female, with past medical history significant for chronic obstructive pulmonary disease, hypertension, who presents to [facility] with a 4-day history of worsening shortness of breath at rest, dyspnea on exertion, cough, and minimal sputum production. The patient also states to intermittent chest pain "on and off." She does not have chest pain at the time of my examination. There is no history of coughing up of blood. There is no history of chest pain - made worse with deep respirations. There is no history of temperatures, chills, or infectious exposure. There is no history of night sweats, weight loss, or appetite change prior to the above events. No history of leg or calf pains. No history of syncope or diaphoresis. No history of recent travel or trauma. REVIEW OF SYSTEMS: No history of nausea, vomiting, or diarrhea. No acute urinary symptoms. No new musculoskeletal complaints. Rest of the review of systems is negative. ALLERGIES: NIFEDIPINE AND NITROFURANTOIN. SOCIAL HISTORY: Positive for tobacco. Negative for alcohol. FAMILY HISTORY: No inheritable diseases. HOME MEDICATIONS: Include Anoro inhaler. No other medications are listed in the current chart. PHYSICAL EXAMINATION: GENERAL: The patient is not short of breath at the present time. She is not using accessory muscles for breathing. VITAL SIGNS: Temperature is 98.3, pulse 75, respirations 18/20, blood pressure 152/83. Oxygen saturation on room air is 95% to 97%. HEENT: Normocephalic, atraumatic. No JVD. CARDIOVASCULAR: Systolic ejection murmur at the lower left sternal border. No S3 gallop. LUNGS: Decreased breath sounds at the bases. Mild bilateral rhonchi. A few expiratory wheezes are also appreciated. EXTREMITIES: No clubbing, cyanosis, or edema. Calves are nontender to palpation. GI: Abdomen is soft, nontender, and nondistended. Bowel sounds are positive. SKIN: No acute rash. NEUROLOGIC: Limited at the present time. PERTINENT LABORATORY DATA: Chest x-ray was done and reviewed. There is no active disease present. CBC: White count 4.2, hemoglobin 9.6, hematocrit 30, and platelets of 124,000. Complete metabolic profile: Potassium 3.4, carbon dioxide 20. B-type natriuretic peptide 504. Rest of the metabolic profiles within normal limits. IMPRESSION: 1. Acute bronchitis. 2. Chronic obstructive pulmonary disease. 3. Intermittent chest pain. 4. Hypertension. 5. Anemia. PLAN: The patient presents to [facility] with a 4-day history of worsening pulmonary symptoms. In addition, as above, the patient also complains of intermittent chest pain (absent at the time of my examination). I did review the chest x-ray as above. The chest x-ray shows no active disease. On physical exam, the patient is in mild bronchospasm. However, there is no significant alveolar-arterial gradient. Oxygen saturation on room air is 95% to 97%. I will start the patient on low-dose intravenous steroids as well as nebulizer treatments. Due to her age and above diagnoses, I will also start oral antibiotic therapy. In addition to the above, cardiology consult with Dr. Moran has been ordered. The patient is for telemetry admission this morning. Additional pulmonary intervention will be based on the clinical status of the patient. I will discuss the above with Dr. Flowers. Thank you very much for this pulmonary consultation. Jacky Bacon MD
[2018-05-16] MEDS: Albuterol-Ipratrop 3 mg / 0.5 (3 ml) UD IH SCH (19:30)
[2018-05-16] MEDS: Budesonide 0.5 mg/2 ml Inhal Susp UD IH SCH (19:30)
[2018-05-16] MEDS: guaiFENesin-Codeine 100-10mg/5ml Syrup (5 ml) UD PO PRN (22:51)
[2018-05-17] MEDS: Albuterol-Ipratrop 3 mg / 0.5 (3 ml) UD IH SCH ×5 (01:53→20:20)
[2018-05-17] MEDS: Budesonide 0.5 mg/2 ml Inhal Susp UD IH SCH ×2 (07:43→20:20)
--- NOTE | 2018-05-17 08:20 | HP ---
CHIEF COMPLAINT: Chest pain, worsening cough. HISTORY OF PRESENT ILLNESS: This is a 79-year-old woman who came to the emergency room today with 3 days of worsening chest discomfort. She describes chest heaviness, tightness and squeezing in the upper chest, made worse by exertion having initially walking up the stairs with laundry and has since been happening walking down the stairs and across the room. Of note is that the patient was seen in the office some 4 days ago for upper respiratory-type symptoms. She complained of cough and nasal congestion, was treated with amoxicillin and cough syrup. Also of note is that for approximately 2 years, the patient has been extensively worked up for a tic-like cough, it is more of a hiccup type of cough where she would try to draw phlegm from the chest with a cough and a "hut" type of expression as she jumps and coughs. A multitude of cough medications, antibiotics, chest x-rays, pulmonary, ENT followups has been done without relief and the patient was scheduled to see insole stiffener next week as the CAT scan showed a small pericardial effusion. They would see Dr. Barba and Dr. Moran will see the patient during this hospital stay in view of the new chest pressure-like exertional symptoms reported above. PAST MEDICAL HISTORY: Significant for hypertension since 1990, negative for diabetes, cholesterol, tuberculosis, asthma, seizures, gout, COPD, TIA, CVA, NM, coronary artery disease or cancers of any type. Past history is significant for macular degeneration, osteoarthritis and hearing loss. PAST SURGICAL HISTORY: Includes cholecystectomy in 1989, hysterectomy, craniotomy and meningioma resection in 07/2001, cataract surgery, arthroscopy of the left knee in 2001 and breast biopsy in 2009. ALLERGIES: PROCARDIA CAUSES PALPITATION, NAPROXEN CAUSES SHORTNESS OF BREATH AND PROTONIX CAUSES DIARRHEA. SOCIAL HISTORY: She does not smoke, does not drink alcohol or coffee. She had a colonoscopy in 1993, 1997, 2003 and 2011. She had an endoscopy in 1997, most recent mammogram was in 2011. [address] Chávez every 6 months for her routine eye exam. She had a normal stress test in 1994 and 2003. FAMILY HISTORY: Mother in 1961 at the age of 65, father at age 65. She is #13 of 13 siblings and is the last, however, she is a from her first marriage and now to her current of 46 years. Her first in 1961 at the age of 35 of coronary artery disease. She remarried 3 years later and lives with her . She has 4 children, 9 grandchildren and 1 great grand. She got retired from [employer] in [place], [place]. Problem list and diagnosis and her medical chart in the office shows hypertension, postnasal drip with cough, osteoarthritis, status post craniotomy with loss of sense of taste and smell, decreased auditory acuity, history of visual migraines in the distant past, diverticulosis and a renal mass first noted in 2013 which has been stable. CURRENT MEDICATIONS: Include diltiazem 180 mg daily, Ocuvite vitamins, tramadol, Advil and Claritin. REVIEW OF SYSTEMS: Otherwise unremarkable. PHYSICAL EXAMINATION: GENERAL: The patient was seen in room 262, bed 2, this Saturday evening with the son at the bedside. She is awake, alert, clear, in good spirits. Concerned about the chest heaviness and tightness she experience. HEAD AND NECK: Unremarkable. Conjunctivae are pink. Mucous membranes are moist. NECK: Supple, without masses. LUNGS: Show good aeration in right and left with no rales or wheezes. HEART: Regular. Not tachycardic. There is however a harsh upper respiratory cough in addition to the tic-like ____ cough she has. ABDOMEN: Soft, nontender. EXTREMITIES: No edema. IMPRESSION: 1. Exertional chest pain, tightness, wheezing, heaviness of 2 or 3 days duration. 2. Upper respiratory infection, acute bronchitis with harsh ____ cough. 3. 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 4. Hypertension. 5. Macula degeneration. 6. Hearing loss. 7. Status post craniotomy for meningioma. 8. Renal mass. 9. History of diverticulosis. 10. History of visual migraines. 11. Osteoarthritis. PLAN: The patient will be admitted to telemetry monitored floor, Cardiology consultation called, serial enzymes, labs and troponins will be checked. Stress test will probably be done on Saturday. She has already been seen by the Pulmonary software developer consultant, Dr. Bacon. Steroids, antibiotics and aerosol treatments have been ordered and we will talk to them about further workup of the tic-like cough as the bronchitis clears. Jay Flowers MD
--- NOTE | 2018-05-17 09:01 | CARD ---
APPROVED REPORT EKG Measurement Heart [id number] <Conclusion> Sinus rhythm with 1st degree AV block Low voltage QRS NSSTW changes No change
[2018-05-17] MEDS: diltiaZEM 180 mg/24 Hours CD Cap PO SCH (09:38)
[2018-05-17] MEDS: MethylPREDNISolone 40 mg Vial IVP SCH ×2 (09:40→22:23)
[2018-05-17] MEDS: guaiFENesin-Codeine 100-10mg/5ml Syrup (5 ml) UD PO PRN ×2 (09:40→22:28)
--- NOTE | 2018-05-17 09:47 | CON ---
DATE: 05/17/2018 CONSULTATION INDICATION: Chest pain. HISTORY OF PRESENT ILLNESS: This is an 88-year-old woman, admitted with shortness of breath, cough and vague chest pain for a day or two prior to admission. She came to the emergency room. She was admitted to telemetry. Today, she feels weak with occasional cough. There was no chest pain this morning. She is short of breath with mild exertion. There is no orthopnea, PND, syncope, presyncope, lightheaded, dizziness, vertigo, palpitation, edema, claudication, fever, chills, hemoptysis, abdominal pain, nausea, vomiting, diarrhea, constipation and melena. PAST MEDICAL HISTORY: Notable for COPD, hypertension, a small to medium pericardial effusion seen on an echocardiogram this past October. She is status post left hip surgery for a fall and fracture. She had a hysterectomy and gallbladder surgery. MEDICATIONS AT THE TIME OF ADMISSION: Include diltiazem, tramadol and Xanax. ALLERGIES: SHE NOTES ALLERGIES TO NIFEDIPINE AND NITROFURANTOIN. SOCIAL HISTORY: She lives at home with her . She does not smoke. She does not drink alcohol significantly. REVIEW OF SYSTEMS: Ten-point review of systems otherwise unremarkable except as noted above. FAMILY HISTORY: Noncontributory. PHYSICAL EXAMINATION: GENERAL: She is an elderly woman, sitting on her bed in telemetry, in no acute distress. VITAL SIGNS: Notable for sinus rhythm, 68 beats per minute. She is afebrile, blood pressure 128/76, respirations 20, O2 sat 96% on room air. HEENT: Reveals no neck vein distention, thyromegaly or carotid bruits. Mucous membranes moist. Conjunctivae pink. NECK: Supple. LUNGS: Lung castillo, scattered rhonchi. HEART: Examination of the heart revealed normal first and second heart sounds. ABDOMEN: Soft. Bowel sounds present. No mass, organomegaly, tenderness, rebound, guarding, CVA tenderness or palpable abdominal aortic aneurysm. EXTREMITIES: Revealed no cyanosis, clubbing or edema. NEUROLOGICAL: She is awake, alert and oriented. PSYCHIATRIC: Normal as to mood and affect. SKIN: Warm and dry. No rash or cellulitis. LABORATORY DATA AND IMAGING: Chest x-ray reveals no active disease. EKG demonstrates regular sinus rhythm with first-degree heart block. It is a low-voltage EKG with nonspecific ST-wave changes. Basically unchanged from a prior EKG. White count 4200, hemoglobin 9.6, hematocrit 30, platelet count 124,000. Electrolytes notable for a potassium of 3.4. BUN, creatinine unremarkable. Blood sugar unremarkable. Magnesium 1.7, troponin less than 0.01. BNP 504. IMPRESSION: Mer Cotto is an 88-year-old woman, admitted with cough, shortness of breath, vague chest pain. She has a history of small to medium-sized pericardial effusion on an echocardiogram done preoperatively in 10/2017. At this time, she is getting pulmonary evaluation and treatment. I will review her old records. I will order an echocardiogram. I will repeat her troponin this morning. I will get an EKG this morning. She can be out of bed to the chair. She is anemic. We should check stool for occult blood. I will continue diltiazem. She is getting pulmonary treatments. Potassium has been replaced. We will monitor potassium levels. She is getting antibiotics, steroids, tramadol, Xanax as needed. I will follow along with you. I will make additional recommendations based on her clinical course. Js Moran MD MABEL
--- NOTE | 2018-05-17 10:47 | PN ---
DATE: 05/17/2018 PULMONARY PROGRESS NOTE SUBJECTIVE: Patient was seen and examined at bedside. She is receiving inhalation treatment with DuoNeb with added budesonide and she is on a low-dose intravenous steroids at 30 mg twice a day. PHYSICAL EXAMINATION: VITAL SIGNS: Temperature 97.8, pulse 68, respirations 20, pulse oximetry is 96 on room air, blood pressure is 128/76. HEENT: Examination of head, normocephalic and atraumatic. NECK: Supple with no jugular vein distention. CARDIOVASCULAR: S1, S2. No S3, regular. PULMONARY: Diminished breath sounds bilaterally with prolonged expiration and rhonchi and wheezes at the end of expiration bilaterally. GASTROINTESTINAL: Soft, nontender. No organomegaly. EXTREMITIES: No pedal edema. No cyanosis. SKIN: Clear with no skin rashes. NEUROLOGIC: No focal deficits. LABORATORY DATA: No new laboratory data. ASSESSMENT: 1. Exacerbation of chronic obstructive pulmonary disease. 2. Acute bronchitis. 3. Intermittent chest pain. 4. Anemia. PLAN: The patient starting to improve. She has severe chronic obstructive pulmonary disease with exacerbation with current aerosol therapy and intravenous steroids. Her condition is starting to improve. Cardiac workup is in progress. We will follow closely. Wolfgang Krause MD
[2018-05-18] MEDS: Albuterol-Ipratrop 3 mg / 0.5 (3 ml) UD IH SCH ×4 (01:20→20:45)
[2018-05-18 06:08] LABS: GRAN % 91.5 % (50.0-68.0); HEMOGLOBIN 9.3 g/dL (12.0-16.0); LYMPH # 0.4 (1.2-3.4); LYMPH % 5.6 % (22.0-35.0); MEAN CELL VOLUME 71.5 fl (80.0-105.0); MEAN CORPUSCULAR HEMOGLOBIN 22.9 pg (25.0-35.0); MEAN PLATELET VOLUME 9.9 fl (7.0-11.0); MONO # 0.2 (0.1-0.6); MONO % 2.9 % (1.0-6.0); PLATELET COUNT 162 10^3/uL (120.0-450.0); RBC 4.07 10^6/uL (3.5-6.1); RED CELL DISTRIBUTION WIDTH 16.2 % (11.5-14.5); WHITE BLOOD COUNT 7.9 10^3/ul (4.5-11.0)
[2018-05-18 07:15] LABS: BLOOD UREA NITROGEN 24 mg/dL (7-21); CALCIUM 9.9 mg/dL (8.4-10.5); GFR AFRICAN-AMERICAN > 60; GFR NON-AFRICAN AMERICAN 52
[2018-05-18] MEDS: Budesonide 0.5 mg/2 ml Inhal Susp UD IH SCH ×2 (07:45→20:45)
--- NOTE | 2018-05-18 07:52 | CP.PCM.PN ---
Subjective - Date & Time of Evaluation Date of Evaluation: 05/18/18 Time of Evaluation: 07:00 - Subjective Subjective: Stable on 2R. No CP or SOB. V/S noted. RSR. PE: Lungs: clear Cor.: S1S2 Abd.: soft Ext.: no edema Neuro.: alert Labs noted: K+= 4.1, H/H = 9.3/29.1, trops neg. X2 ECG 05/17 noted: RSR, NSSTW changes. No acute change Objective - Vital Signs/Intake and Output Vital Signs (last 24 hours): Temp Pulse Resp BP Pulse Ox 98.4 F 81 19 121/70 96 05/18/18 00:01 05/18/18 02:00 05/18/18 00:01 05/18/18 00:01 05/17/18 06:00 Intake and Output: 05/18/18 05/18/18 06:59 18:59 Intake Total 660 Balance 660 - Medications Medications: Current Medications Albuterol/Ipratropium (Duoneb 3 Mg/0.5 Mg (3 Ml) Ud) 3 ml IH [id number] [facility] Last Admin: 05/18/18 01:20 Dose: 3 ml Albuterol/Ipratropium (Duoneb 3 Mg/0.5 Mg (3 Ml) Ud) 3 ml IH Q2H PRN PRN Reason: Shortness of Breath Alprazolam (Xanax) 0.25 mg PO BID PRN; Protocol PRN Reason: Anxiety Stop: 05/23/18 18:01 Last Admin: 05/17/18 22:23 Dose: 0.25 mg Budesonide (Pulmicort Respules) 0.5 mg IH [id number] [facility] Last Admin: 05/17/18 20:20 Dose: 0.5 mg Diltiazem HCl (Cardizem Cd) 180 mg PO DAILY [facility] Last Admin: 05/17/18 09:38 Dose: 180 mg Guaifenesin/Codeine Phosphate (Robitussin W/Codeine) 5 ml PO Q6 PRN PRN Reason: cough Last Admin: 05/17/18 22:28 Dose: 5 ml Levofloxacin (Levaquin) 250 mg PO DAILY [facility] PRN Reason: Protocol Last Admin: 05/17/18 09:39 Dose: 250 mg Methylprednisolone (Solu-Medrol) 30 mg IVP Q12 JOAQUIN Last Admin: 05/17/18 22:23 Dose: 30 mg Tramadol HCl (Ultram) 50 mg PO BID PRN PRN Reason: Pain, moderate (4-7) Last Admin: 05/17/18 09:40 Dose: 50 mg - Labs Labs: 05/18/18 06:00 05/18/18 06:00 Assessment and Plan - Assessment and Plan (Free Text) Assessment: CP/Dyspnea/Cough COPD/URI/Acute bronchitis HBP H/O Small/Medium pericardial effusion on echo 10/27 S/P fall with left hip fx and repair CVD/ Miguel. 20 - 39% ICA stenoses Macular degeneration Diminished hearing H/O surgeries: GB, hysterectomy, cataracts, meningioma, breast lump Plan: As per Pulmonary and Dr. Flowers Pulm. tx., AB, steroids. Check echo when done Consider out-pt nuclear stress test. OOB as salomon Will follow.
--- NOTE | 2018-05-18 08:58 | CARD ---
APPROVED REPORT EKG Measurement Heart [id number] <Conclusion> Sinus rhythm with 1st degree AV block with premature atrial complexes NSSTW changes No change
[2018-05-18 09:04] LABS: LYMPHOCYTE 7 % (22.0-35.0); MONOCYTE 2 % (1.0-6.0); NEUTROPHIL 91 % (50.0-70.0)
[2018-05-18 09:05] LABS: MICROCYTOSIS 1+; PLATELET ESTIMATE NORMAL (NORMAL)
[2018-05-18] MEDS: MethylPREDNISolone 40 mg Vial IVP SCH ×2 (09:43→21:23)
[2018-05-18] MEDS: diltiaZEM 180 mg/24 Hours CD Cap PO SCH (09:44)
--- NOTE | 2018-05-18 10:53 | PN ---
DATE: 05/18/2018 PULMONARY PROGRESS NOTE SUBJECTIVE: The patient was seen and examined at bedside. She states she feels better. She is sitting at the edge of her bed with no respiratory distress and currently not wearing oxygen. She is getting inhalation therapy with DuoNeb and budesonide and she is also on a low-dose Solu-Medrol. PHYSICAL EXAMINATION: VITAL SIGNS: Temperature 98.4, pulse 87, respirations 20, her previous oxygen saturation was 100 on nasal cannula earlier in a.m. HEENT: Head normocephalic and atraumatic. NECK: Supple with no jugular vein distentions. CHEST: Symmetrical. There is few expiratory rhonchi, but no wheezing. GASTROINTESTINAL: Soft, nontender. No organomegaly. EXTREMITIES: No pedal edema. SKIN: No cyanosis. No edema. No skin rash. NEUROLOGIC: No focal deficits. LABORATORY DATA: Additional data reviewed. The patient's WBC this morning is 7.9, hemoglobin 9.3. Sodium 137 and blood sugar is 140. ASSESSMENT: 1. Exacerbation of severe chronic obstructive pulmonary disease. 2. Acute bronchitis. 3. Chest pain, resolved. 4. Anemia. PLAN: The patient improved significantly. She is no longer short of breath at rest. She is receiving nebulizer treatments and low-dose intravenous steroids. She can be switched to oral steroids and tapered. Discharge planning as per attending. Data reviewed is above. Wolfgang Krause MD
--- NOTE | 2018-05-18 11:49 | PN ---
DATE: 05/17/2018 DAILY PROGRESS NOTE SUBJECTIVE: The patient is an 88-year-old female who is status post cholecystectomy, status post hysterectomy, status post craniotomy for meningioma, also has a history of left knee surgery, breast biopsy, is suffering from macular degeneration, osteoarthritis and hypertension, who was admitted on 05/16/2018 with chest pain. To date, her troponins have been negative x2. Her EKG shows regular sinus rhythm with first-degree AV block and nonspecific ST-T wave changes. Chest x-ray showed no acute disease. When seen today, she is afebrile, blood pressure is 132/72, heart rate is 94 beats per minute. She is awake, alert and oriented. Her lungs are clear to auscultation and percussion. Heart is regular. No chest pain on palpation of the thoracic wall. Abdomen is soft and nontender. Extremities are free of cyanosis, clubbing or edema. Yesterday's laboratories are reviewed and are essentially unremarkable except for a mildly depressed potassium of 3.4. She is being followed by Dr. Moran and Dr. Bacon, the 911 dispatcher and director report respectively. She is being treated for acute bronchitis. We are awaiting an echocardiogram and possible thallium stress test to be performed after the weekend. Herb Flowers MD
--- NOTE | 2018-05-18 12:53 | PN ---
DATE: 05/18/2018 DAILY PROGRESS NOTE SUBJECTIVE: The patient is an 88-year-old female with a history of macular degeneration, osteo arthritis, hypertension. She is status post cataract surgery, left knee surgery, breast biopsy, status post craniotomy for meningioma years ago, status post hysterectomy and cholecystectomy who was admitted two days ago with chest pain. Her workup so far has been negative. Troponins have been negative x2. Her EKG shows regular sinus rhythm with nonspecific ST-T wave changes and first degree AV block. Chest x-ray shows no acute disease. She is being followed by Dr. Moran, the press tender star signal and Dr. Krause, the electron microscopist. PHYSICAL EXAMINATION: GENERAL: When seen today, the patient is sitting up at the edge of the bed. She is awake, alert and oriented. She appears to be in no acute distress. VITAL SIGNS: Stable. LUNGS: Clear. HEART: Regular. ABDOMEN: Soft and nontender. ASSESSMENT AND PLAN: We are awaiting an echocardiogram, which was ordered by Dr. Moran has not yet been done. She is receiving pulmonary medication from Dr. Krause and she seems to be improving nicely. This morning, laboratory shows that the white blood cells 7.9, hemoglobin and hematocrit are 9.3 and 29.1 respectively. Serum chemistries are unremarkable. So, she will probably have the echocardiogram done in the morning and further workup by Cardiology suggested to be done as an outpatient post discharge. I discussed with the nursing staff the importance of patient to receive physical therapy as she was short of breath and developed a chest pain simply walking down the stairs over home on admission, therefore, we need to ambulate the patient to evaluate her symptoms that way. Herb Flowers MD
[2018-05-18] MEDS: guaiFENesin-Codeine 100-10mg/5ml Syrup (5 ml) UD PO PRN (21:23)
[2018-05-19] MEDS: Albuterol-Ipratrop 3 mg / 0.5 (3 ml) UD IH SCH ×2 (02:07→07:48)
--- NOTE | 2018-05-19 07:40 | CP.PCM.PN ---
Subjective - Date & Time of Evaluation Date of Evaluation: 05/19/18 Time of Evaluation: 07:00 - Subjective Subjective: Stable on 2R. No CP or SOB. She feels much better now. V/S noted. RSR. PE: Lungs: clear Cor.: S1S2 Abd.: soft Ext.: no edema Neuro.: alert Labs noted: K+= 4.1, H/H = 9.3/29.1, trops neg. X2 ECG 05/17 noted: RSR, NSSTW changes. No acute change Objective - Vital Signs/Intake and Output Vital Signs (last 24 hours): Temp Pulse Resp BP Pulse Ox 97.7 F 68 20 117/68 97 05/19/18 06:00 05/19/18 06:00 05/19/18 06:00 05/19/18 06:00 05/19/18 06:00 Intake and Output: 05/19/18 05/19/18 06:59 18:59 Intake Total 720 Balance 720 - Medications Medications: Current Medications Albuterol/Ipratropium (Duoneb 3 Mg/0.5 Mg (3 Ml) Ud) 3 ml IH [id number] [facility] Last Admin: 05/19/18 02:07 Dose: Not Given Albuterol/Ipratropium (Duoneb 3 Mg/0.5 Mg (3 Ml) Ud) 3 ml IH Q2H PRN PRN Reason: Shortness of Breath Alprazolam (Xanax) 0.25 mg PO BID PRN; Protocol PRN Reason: Anxiety Stop: 05/23/18 18:01 Last Admin: 05/18/18 21:30 Dose: 0.25 mg Budesonide (Pulmicort Respules) 0.5 mg IH [id number] [facility] Last Admin: 05/18/18 20:45 Dose: 0.5 mg Diltiazem HCl (Cardizem Cd) 180 mg PO DAILY [facility] Last Admin: 05/18/18 09:44 Dose: 180 mg Guaifenesin/Codeine Phosphate (Robitussin W/Codeine) 5 ml PO Q6 PRN PRN Reason: cough Last Admin: 05/18/18 21:23 Dose: 5 ml Levofloxacin (Levaquin) 250 mg PO DAILY [facility] PRN Reason: Protocol Last Admin: 05/18/18 09:43 Dose: 250 mg Methylprednisolone (Solu-Medrol) 30 mg IVP Q12 JOAQUIN Last Admin: 05/18/18 21:23 Dose: 30 mg Tramadol HCl (Ultram) 50 mg PO BID PRN PRN Reason: Pain, moderate (4-7) Last Admin: 05/18/18 21:24 Dose: 50 mg - Labs Labs: 05/18/18 06:00 05/18/18 06:00 Assessment and Plan - Assessment and Plan (Free Text) Assessment: CP/Dyspnea/Cough COPD/URI/Acute bronchitis HBP H/O Small/Medium pericardial effusion on echo 10/27 S/P fall with left hip fx and repair CVD/ Miguel. 20 - 39% ICA stenoses Macular degeneration Diminished hearing H/O surgeries: GB, hysterectomy, cataracts, meningioma, breast lump Plan: As per Pulmonary and Drs. Lionel Fleming. tx., AB, steroids. Check echo when done>this AM Out-pt nuclear stress test. OOB as salomon/PT Home soon.
[2018-05-19] MEDS: Budesonide 0.5 mg/2 ml Inhal Susp UD IH SCH ×2 (07:48→19:46)
[2018-05-19] MEDS: diltiaZEM 180 mg/24 Hours CD Cap PO SCH (09:41)
--- NOTE | 2018-05-19 09:50 | PN ---
DATE: 05/19/2018 PULMONARY PROGRESS NOTE The patient remains comfortable. No respiratory distress. She is walking around the room. Awaiting the echocardiogram. States that she will be discharged shortly. PHYSICAL EXAMINATION: VITAL SIGNS: Stable. She is afebrile. O2 saturation 98% on room air, blood pressure 130/70. HEENT: Normocephalic, atraumatic. NECK: Supple. No JVD. CARDIOVASCULAR: Regular rhythm. S1, S2 without murmur, gallop or rub. LUNGS: Prolonged expiratory phase, but essentially clear to percussion and auscultation. HEART: Regular rhythm without murmur or gallop. ABDOMEN: Soft. Bowel sounds normoactive without mass, guarding, rebound, organomegaly. EXTREMITIES: Reveal no clubbing, cyanosis or edema. NEUROLOGICAL: No focal findings. The patient is ambulating in the room without difficulty. LABORATORY DATA No new laboratory data is available at this time. ASSESSMENT: 1. Status post exacerbation of chronic obstructive pulmonary disease. 2. Status post acute bronchitis. 3. Intermittent chest pain. PLAN: Continue vigorous bronchodilator therapy. Await final cardiac evaluation. Continue bronchodilators. The patient will require complete pulmonary function study and further pulmonary evaluation, either prior to discharge or afterwards. We will discuss with Dr. Flowers and follow closely with you. Alexis Sanchez MD
[2018-05-19] MEDS ORDERED: Fluticasone-Salmeterol 250-50mcg Diskus IH SCH (10:00)
[2018-05-19] MEDS: Arformoterol 15 mcg/2 ml Inh Sol IH SCH (19:46)
[2018-05-19] MEDS: guaiFENesin-Codeine 100-10mg/5ml Syrup (5 ml) UD PO PRN (23:02)
[2018-05-20 06:44] VITALS: O2SAT 94
--- NOTE | 2018-05-20 07:43 | CARD ---
APPROVED REPORT EXAM: Two-dimensional and M-mode echocardiogram with Doppler and color Doppler. Other Information Quality : AverageRhythm : INDICATION Pericardial Effusion Dyspnea Chest Pain COPD 2D DIMENSIONS Left Atrium (2D)4.1 (1.6-4.0cm)IVSd1.1 (0.7-1.1cm) LVDd4.0 (3.9-5.9cm)PWd0.9 (0.7-1.1cm) LVDs2.5 (2.5-4.0cm)FS (%) 35.9 % LVEF (%)66.0 (>50%) M-Mode DIMENSIONS Aortic Root2.60 (2.2-3.7cm)Aortic Cusp Exc.1.40 (1.5-2.0cm) Aortic Valve AoV Peak Xwumhgqy822.0cm/s Mitral Valve MV E Exycwkvx65.0cm/sMV A Zwbgbhwe46.7cm/sE/A ratio1.0 TDI E/Lateral E'0.0E/Medial E'0.0 Tricuspid Valve TR Peak Siztmoyq558ol/sRAP [id number] Peak Gr.30mmHg [id number] LEFT VENTRICLE The left ventricle is normal size. There is normal left ventricular wall thickness. The left ventricular function is normal. The left ventricular ejection fraction is within the normal range. There is normal LV segmental wall motion. RIGHT VENTRICLE The right ventricle is normal size. ATRIA The left atrium is mildly dilated. The right atrium size is normal. The interatrial septum is intact with no evidence for an atrial septal defect. AORTIC VALVE The aortic valve is mildly calcified. MITRAL VALVE The mitral valve is mildly thickened but opens well. Mitral annular calcification is mild to moderate. Mitral regurgitation is mild. TRICUSPID VALVE The tricuspid valve is normal in structure. There is mild to moderate tricuspid regurgitation. PULMONIC VALVE The pulmonic valve is not well visualized. There is trace pulmonic valvular regurgitation. GREAT VESSELS The aortic root is normal in size. PERICARDIAL EFFUSION There is a small circumferential pericardial effusion. <Conclusion> The left ventricle is normal size. There is normal left ventricular wall thickness. The left ventricular function is normal. The aortic valve is mildly calcified. Aortic sclerosis. Mitral regurgitation is mild. There is mild to moderate tricuspid regurgitation. There is a small circumferential pericardial effusion.
--- NOTE | 2018-05-20 07:47 | CP.PCM.PN ---
Subjective - Date & Time of Evaluation Date of Evaluation: 05/20/18 Time of Evaluation: 07:00 - Subjective Subjective: Stable on 2R. No CP or SOB. She feels much better now. She wants to go home. V/S noted. RSR. PE: Lungs: clear Cor.: S1S2 Abd.: soft Ext.: no edema Neuro.: alert Labs noted: K+= 4.1, H/H = 9.3/29.1, trops neg. X2 ECG 05/17 noted: RSR, NSSTW changes. No acute change Echo noted: Nl LV fx., Mild MR, Mild/Mod. TR, Small peric. effusion. Objective - Vital Signs/Intake and Output Vital Signs (last 24 hours): Temp Pulse Resp BP Pulse Ox 97.8 F 60 20 123/69 94 L 05/20/18 06:00 05/20/18 06:00 05/20/18 06:00 05/20/18 06:00 05/20/18 06:00 Intake and Output: 05/20/18 05/20/18 06:59 18:59 Intake Total 240 Output Total 2 Balance 238 - Medications Medications: Current Medications Alprazolam (Xanax) 0.25 mg PO BID PRN; Protocol PRN Reason: Anxiety Stop: 05/23/18 18:01 Last Admin: 05/19/18 22:34 Dose: 0.25 mg Arformoterol Tartrate (Brovana) 15 mcg IH [id number] [facility] Last Admin: 05/19/18 19:46 Dose: 15 mcg Budesonide (Pulmicort Respules) 0.5 mg IH [id number] [facility] Last Admin: 05/19/18 19:46 Dose: 0.5 mg Diltiazem HCl (Cardizem Cd) 180 mg PO DAILY [facility] Last Admin: 05/19/18 09:41 Dose: 180 mg Guaifenesin/Codeine Phosphate (Robitussin W/Codeine) 5 ml PO Q6 PRN PRN Reason: cough Last Admin: 05/19/18 23:02 Dose: 5 ml Levofloxacin (Levaquin) 250 mg PO DAILY [facility] PRN Reason: Protocol Last Admin: 05/19/18 09:41 Dose: 250 mg Methylprednisolone (Medrol) 12 mg PO BID [facility] Last Admin: 05/19/18 17:33 Dose: 12 mg Tramadol HCl (Ultram) 50 mg PO BID PRN PRN Reason: Pain, moderate (4-7) Last Admin: 05/19/18 22:34 Dose: 50 mg - Labs Labs: 05/18/18 06:00 05/18/18 06:00 Assessment and Plan - Assessment and Plan (Free Text) Assessment: CP/Dyspnea/Cough COPD/URI/Acute bronchitis HBP H/O Small/Medium pericardial effusion on echo 10/27. Small on current echo. S/P fall with left hip fx and repair CVD/ Miguel. 20 - 39% ICA stenoses Macular degeneration Diminished hearing H/O surgeries: GB, hysterectomy, cataracts, meningioma, breast lump Plan: As per Pulmonary and Drs. Lionel Fleming. tx., AB, steroids. Out-pt f/u and nuclear stress test. OOB as salomon/PT Home later today.
[2018-05-20] MEDS: Budesonide 0.5 mg/2 ml Inhal Susp UD IH SCH (08:12)
[2018-05-20] MEDS: Arformoterol 15 mcg/2 ml Inh Sol IH SCH (08:12)
[2018-05-20] MEDS: diltiaZEM 180 mg/24 Hours CD Cap PO SCH (10:09)
[2018-05-20 10:19] VITALS: PULSE 67
[2018-05-20 11:25] VITALS: BP 141/70; RESP 18; TEMP 97.9
--- NOTE | 2018-05-21 18:24 | DS ---
HOSPITAL COURSE: The patient is an 88-year-old female with a history of macular degeneration, osteoarthritis, hypertension, status post cataract surgery, status post left knee surgery, status post breast biopsy, status post craniotomy for meningioma, status post hysterectomy and status post cholecystectomy who was admitted on 05/16/2018 with chest pain. During her hospital stay, her workup has been negative, troponins have been negative. EKG showed regular sinus rhythm with nonspecific ST-T wave changes and first degree AV block. Chest x-ray showed no acute disease. During her hospital stay, she was followed by Dr. Moran and Dr. Barba, the cardiologists as well as Dr. Krause, Dr. Bacon and Dr. Sanchez, the pulmonologists. She was treated for COPD exacerbation, chronic bronchitis. She underwent echocardiography which was essentially negative. As the echocardiogram was negative, the patient was cleared for discharge. Her pulmonary status has markedly improved. The patient was discharged to home in an improved condition. She was instructed to follow up with the network desktop support specialist in the future for further evaluation, complete pulmonary function tests. She is also to continue workup with the program evaluation consultant as an outpatient especially for a thallium stress test. FINAL DIAGNOSES: 1. Chronic obstructive pulmonary disease exacerbation. 2. Status post acute bronchitis. 3. Chest pain. Herb Flowers MD [facility] # [id number]
== END 2018-05-20 13:41 | disposition home or self-care (01) | DRG 191 ==
LOC: ED 08:31 → ERH 10:40 → 2RNO 12:05
PROVIDERS: ADMIT Internal Medicine; ATTEND Internal Medicine
DX: J44.1 Chronic obstructive pulmonary disease with (acute) exacerbation (principal); I31.3 Pericardial effusion (noninflammatory); J44.0 Chronic obstructive pulmonary disease with (acute) lower respiratory infection; J20.9 Acute bronchitis, unspecified; I25.10 Atherosclerotic heart disease of native coronary artery without angina pectoris; I44.0 Atrioventricular block, first degree; J06.9 Acute upper respiratory infection, unspecified; D64.9 Anemia, unspecified; H35.30 Unspecified macular degeneration; H91.90 Unspecified hearing loss, unspecified ear; I10 Essential (primary) hypertension; M19.90 Unspecified osteoarthritis, unspecified site; N28.89 Other specified disorders of kidney and ureter; Z86.011 Personal history of benign neoplasm of the brain; Z90.49 Acquired absence of other specified parts of digestive tract; Z90.710 Acquired absence of both cervix and uterus; Z88.8 Allergy status to other drugs, medicaments and biological substances; R40.2412 Glasgow coma scale score 13-15, at arrival to emergency department

== ENCOUNTER 2019-04-02 02:31 | Emergency (ER) | payer MEDICARE, OTHER ==
[2019-04-02 02:32] VITALS: BMI 20.8
[2019-04-02 02:48] VITALS: TEMP 98.1
--- NOTE | 2019-04-02 03:14 | ED PDOC ---
Arrival/HPI - General Historian: Patient, Spouse - History of Present Illness Narrative History of Present Illness (Text): 04/02/19 03:08 Pt is an 89 yo female with a PMH of cataracts, macular degeneration, glaucoma, benign tumor of the optic nerve who presents to the ED complaining of visual disturbances that started yesterday, and occurs in each eye independently when the contralateral eye is shut. Pt states she has had color disturbance and color changes, "everything is pink, green, and white". Pt states she also has a floater in her visual field which occurs only in the LEFT eye. She also reports eye pain. Pt denies double vision, blurry vision, or halos. Denies headache, nausea, vomiting. Time/Duration: 24 hours Symptom Course: Worsening Quality: Pressure Severity Level: 7 Activities at Onset: Rest Context: Sitting <Richard Miranda - Last Filed: 04/02/19 07:02> <Adis Carrillo - Last Filed: 04/05/19 20:29> - General Chief Complaint: Eye Problem Past Medical History - Infectious Disease Hx of Infectious Diseases: None - Tetanus Immunization Tetanus Immunization: Unknown - Cardiac Hx Cardiac Disorders: Yes (MS,CAD) Hx Hypertension: Yes - Pulmonary Hx Respiratory Disorders: Yes Hx Chronic Obstructive Pulmonary Disease (COPD): Yes - Neurological Hx Neurological Disorder: Yes HX Cerebrovascular Accident: Yes - HEENT Hx HEENT Disorder: Yes Hx Blind: Yes (L EYE) Hx Cataracts: Yes Hx Deafness: Yes Hx Glaucoma: Yes Hx Macular Degeneration: Yes Other/Comment: bilat hearing aid - Renal Hx Renal Disorder: Yes (RENAL INSUFFICEINCY,) - Endocrine/Metabolic Hx Endocrine Disorders: No - Hematological/Oncological Hx Blood Disorders: No - Integumentary Hx Dermatological Disorder: No - Musculoskeletal/Rheumatological Hx Musculoskeletal Disorders: Yes Hx Arthritis: Yes - Gastrointestinal Hx Gastrointestinal Disorders: Yes Hx Gall Bladder Disease: Yes (CHOLECYSTECTOMY) - Genitourinary/Gynecological Hx Genitourinary Disorders: Yes (HYSTERECTOMY) Hx Urinary Tract Infection: Yes - Psychiatric Hx Psychophysiologic Disorder: Yes Hx Anxiety: Yes Hx Depression: No Hx Emotional Abuse: No Hx Physical Abuse: No Hx Substance Use: No - Surgical History Hx Cholecystectomy: Yes Hx Hysterectomy: Yes Other/Comment: brain tumor removal - Anesthesia Hx Anesthesia Reactions: No Hx Malignant Hyperthermia: No - Suicidal Assessment Feels Threatened In Home Enviroment: No <Richard Miranda - Last Filed: 04/02/19 07:02> Family/Social History Family/Social History: Neoplasm/Cancer Smoking Status: Never Smoked Hx Alcohol Use: No Hx Substance Use: No Hx Substance Use Treatment: No <Richard Miranda - Last Filed: 04/02/19 07:02> Allergies/Home Meds <Richard Miranda - Last Filed: 04/02/19 07:02> <Adis Carrillo - Last Filed: 04/05/19 20:29> Allergies/Adverse Reactions: Allergies nifedipine Allergy (Verified 04/02/19 02:51) DIZZINESS nitrofurantoin Allergy (Verified 04/02/19 02:51) RASH Home Medications: Home Meds Medication Instructions Recorded Confirmed diltiaZEM CD [Cardizem CD] 180 mg PO DAILY 05/16/18 04/02/19 traMADol [Ultram] 50 mg PO BID PRN 05/16/18 04/02/19 Cu/Se/Vit A/Vit C/Vit E/Zinc 1 tab PO DAILY 04/02/19 04/02/19 [Ocuvite] Loratadine [Claritin] 10 mg PO DAILY 04/02/19 04/02/19 Review of Systems - Review of Systems Constitutional: Normal Eyes: Vision Changes, Eye Pain, Other (visual color disturbance ) ENT: Normal Respiratory: Normal Cardiovascular: Normal Gastrointestinal: Normal Musculoskeletal: Normal Skin: Normal Neurological: Normal Endocrine: Normal Hemo/Lymphatic: Normal Psychiatric: Normal <Richard Miranda - Last Filed: 04/02/19 07:02> Physical Exam Vital Signs Reviewed: Yes Vital Signs Temp Pulse Resp BP Pulse Ox 04/02/19 02:43 98.1 F 76 18 198/94 H 96 Temperature: Afebrile Blood Pressure: Normal Pulse: Regular Respiratory Rate: Normal Appearance: Positive for: Well-Appearing Mental Status: Positive for: Alert and Oriented X 3 - Systems Exam Head: Present: Atraumatic, Normocephalic Pupils: Present: PERRL, Other (no visual feild deficits) Extroacular Muscles: Present: EOMI Conjunctiva: Present: Normal Mouth: Present: Moist Mucous Membranes Respiratory/Chest: Present: Clear to Auscultation, Good Air Exchange. No: Respiratory Distress Cardiovascular: Present: Regular Rate and Rhythm, Normal S1, S2 Abdomen: No: Tenderness, Distention Upper Extremity: Present: Normal Inspection Lower Extremity: Present: Normal Inspection Neurological: Present: GCS=15, CN II-XII Intact Skin: Present: Warm, Dry Psychiatric: Present: Alert, Oriented x 3 <Richard Miranda - Last Filed: 04/02/19 07:02> Vital Signs Temp Pulse Resp BP Pulse Ox 04/02/19 02:43 98.1 F 76 18 198/94 H 96 - Systems Exam Pupils: Present: Other <Adis Carrillo - Last Filed: 04/05/19 20:29> Medical Decision Making ED Course and Treatment: 04/02/19 03:19 EKG CBC CMP 04/02/19 04:07 intraocular pressure measured: L20 R14 04/02/19 06:[address] Hdez Ophthalmology answering service [phone], left a message for call back, trying to help to see Dr Hdez today 04/02/19 07:00 pt to be discharged, explained to her that she must go to see Dr Hdez today as soon as possible Pt seen, examined, assessment, and plan discussed with Dr Gerardo Miranda PGY1 <Richard Miranda - Last Filed: 04/02/19 07:02> ED Course and Treatment: Impression: Pt seen and evaluated with emergency medical technician basic information receptionist. Aware and agree with HPI, clinical findigns, plan, and management. Pt, whose past medical history includes cataracts, macular degeneration, glaucoma, benign tumor of the optic nerve, presented for visual disturbances. Plan: -- EKG -- Labs, troponin -- Apresoline -- Reassess and disposition - Medication Orders Current Medication Orders: Discontinued Medications Hydralazine HCl (Apresoline) 10 mg IVP STAT STA Stop: 04/02/19 03:59 <Adis Carrillo - Last Filed: 04/05/19 20:29> - PA / PROFESSIONAL FEE CODER / Resident Statement KAYLA has reviewed & agrees with the documentation as recorded. KAYLA has examined the patient and agrees with the treatment plan. <Richard Miranda - Last Filed: 04/02/19 07:02> - PA / PROFESSIONAL FEE CODER / Resident Statement KAYLA has reviewed & agrees with the documentation as recorded. MD/DO has examined the patient and agrees with the treatment plan. <Adis Carrillo - Last Filed: 04/05/19 20:29> Disposition/Present on Arrival - Present on Arrival Any Indicators Present on Arrival: No History of DVT/PE: No History of Uncontrolled Diabetes: No Urinary Catheter: No History of Decub. Ulcer: No History Surgical Site Infection Following: None - Disposition Have Diagnosis and Disposition been Completed?: Yes Disposition Time: 07:02 Patient Plan: Discharge <Richard Miranda - Last Filed: 04/02/19 07:02> <Adis Carrillo - Last Filed: 04/05/19 20:29> - Disposition Diagnosis: Visual color changes Disposition: HOME/ ROUTINE Condition: GOOD Referrals: Jay Flowers MD [Primary Care Provider] - Follow up with primary Forms: [employer] (Lithuanian)
[2019-04-02 04:24] LABS: BASO # 0.01 K/mm3 (0.0-2.0); BASO % 0.2 % (0.0-3.0); EOS # 0.2 (0.0-0.7); EOS % 3.6 % (1.5-5.0); HEMOGLOBIN 10.8 g/dL (12.0-16.0); LYMPH # 0.9 (1.2-3.4); LYMPH % 16.9 % (22.0-35.0); MEAN CORPUSCULAR HEMOGLOBIN 25.7 pg (25.0-35.0); MEAN CORPUSCULAR HGB CONC 31.5 g/dl (31.0-37.0); MEAN PLATELET VOLUME 9.4 fl (7.0-11.0); MONO # 0.6 (0.1-0.6); MONO % 11.5 % (1.0-6.0); RBC 4.21 10^6/uL (3.5-6.1); RED CELL DISTRIBUTION WIDTH 14.9 % (11.5-14.5); WHITE BLOOD COUNT 5.5 10^3/uL (4.5-11.0)
[2019-04-02 04:31] LABS: MEAN CELL VOLUME 81.5 fl (80.0-105.0)
[2019-04-02 04:39] VITALS: RESP 20
[2019-04-02 04:44] LABS: ALB/GLOB RATIO 1.1 (1.1-1.8); ALBUMIN 4.1 g/dL (3.0-4.8); ALT/SGPT 24 U/L (7-56); AST/SGOT 31 U/L (14-36); BLOOD UREA NITROGEN 12 mg/dL (7-21); CALCIUM 9.8 mg/dL (8.4-10.5); GFR NON-AFRICAN AMERICAN > 60
[2019-04-02 04:55] LABS: TROPONIN I < 0.01 ng/mL
[2019-04-02 06:16] VITALS: BP 157/83; PULSE 88; O2SAT 98
--- NOTE | 2019-04-02 10:03 | CARD ---
APPROVED REPORT Date of service: 04/02/2019 EKG Measurement Heart [id number] <Conclusion> Sinus rhythm with 1st degree AV block Otherwise normal ECG
== END 2019-04-02 07:12 | disposition home or self-care (01) ==
LOC: ED 02:31
DX: H53.8 Other visual disturbances (principal); I10 Essential (primary) hypertension; I25.10 Atherosclerotic heart disease of native coronary artery without angina pectoris; J44.9 Chronic obstructive pulmonary disease, unspecified; Z86.73 Personal history of transient ischemic attack (TIA), and cerebral infarction without residual deficits; H35.30 Unspecified macular degeneration; H40.9 Unspecified glaucoma
CPT/HCPCS: 80053; 84484; 85025; 93005; 96374; 99284; J0360